=== PATIENT | male | born 1940 | race Caucasian/White ===

== ENCOUNTER 2016-07-17 09:13 | Emergency (ER) | payer OTHER ==
--- NOTE | 2016-07-17 10:55 | ED NURSING NOTES ---
Clinical Report - Nurses [facility] [address] [place] [address] 07/17/2016 9:15 Patient: KURT MILES TRIAGE Triage time 09:21. Acuity: LEVEL 3. Chief Complaint: BACK PAIN. 09:22 07/17/16. 09:22 07/17/16. Alert. 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 Pt states he has back pain and does not know why. Possibly from roof work or something else. Denies trauma to back. Possibly from exposure to a chemical that he was using for roof work.). SEPSIS SCREEN: Sepsis Screen. Negative (no infection suspected/documented). ARLETTE COMA SCORE: Arlette Coma Scale: 15- eyes open spontaneously (4); best verbal response- oriented x 4 (5); best motor response- obeys commands (6). --09:32 Hugo Leal R.N. 09:21 07/17/16. BP: 158/68. HR: 99. RR: 20. O2 saturation: 100% on room air. Temp: 98.3 F (oral). Pain level now: 10/19. --09:32 Hugo Leal R.N. Weight: 77.5 kg stated. Height/Length: 65 inches Per Patient. BMI: 28.5. --09:22 Hugo Leal R.N. Medications Niacin ER Oral 1000mg, daily. --09:28 Hugo Leal R.N. Rosuvastatin Calcium Oral 10 mg, daily. --09:28 Hugo Leal R.N. Tricor Oral (Tablet 145 mg) 1 tablet, daily. --09:29 Hugo Leal R.N. Medication/allergy information source: the patient. --09:32 Hugo Leal R.N. Allergies Malt Vinegar. --09:29 Hugo Leal R.N. History Arrived by private vehicle. Historian: patient. Unaccompanied. Primary physician (JERRY ALCAZAR). 09:07/17/16. Onset. (One week ago). No history of recent trauma. 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 PAST MEDICAL HX: Tetanus status: up-to-date. Immunizations: up-to-date. SOCIAL HX: Current every day light tobacco smoker (cigarette)- less than 1/2 a pack per day. History of occasional drug use: marijuana. (Marijuana cream for back). No alcohol use. No infectious disease exposure. ABUSE ASSESSMENT: No report of abuse. FALL RISK ASSESSMENT: Fall risk assessment completed. No fall risk identified. NUTRITIONAL RISK ASSESSMENT: The nutritional risk assessment revealed no deficiencies. FUNCTIONAL ASSESSMENT: Functional assessment: no impairments noted. LEARNING NEEDS ASSESSMENT: The learning needs assessment revealed no barriers. SKIN INTEGRITY ASSESSMENT: Skin integrity risk assessment completed. No skin integrity risk identified. --09:32 Hugo Leal R.N. PROBLEMS: Elevated Cholesterol. --09:30 Hugo Leal R.N. Tendonitis. --09:30 Hugo Leal R.N. Acute renal failure syndrome. Kidney Bruise. --09:32 Hugo Leal R.N. ADDITIONAL SURGERIES: Cervical laminectomy. Hemorrhoidectomy. --09:30 Hugo Leal R.N. Assessment 09:07/17/16. --09:32 Hugo Leal R.N. Interventions 09:07/17/16. 09:07/17/16. ID and allergy band on patient. To treatment room. --09:32 Hugo Leal R.N. PHYSICAL ASSESSMENT 09:07/17/16. Ambulatory to room. GENERAL / NEURO / PSYCH: Appears in pain. RESPIRATORY: Respirations not labored. CVS: Capillary refill less than 2 seconds. --09:32 Hugo Leal R.N. NURSING PROGRESS NOTES 09:07/17/16. The plan of care for this patient has been created. Head of bed elevated. Reassurance given. Two patient identifiers checked. Call light placed in reach. Side rails up x 2. Bed placed in lowest position. Brakes of bed on. --:25 Hugo Leal R.N. 09:07/17/16. Patient ready for evaluation- chart flagged and notification provided. --09:25 Hugo Leal R.N. 10:00 07/17/16. ( Urine sent to lab). --10:00 Hugo Leal R.N. DISPOSITION / DISCHARGE Departure time: 11:Jul 17 2016. Condition at departure: improved and stable. No learning barriers present. Discharge instructions provided and reviewed with the patient. Reviewed medication(s) side effects, precautions, dosing and course information. Prescription(s) given to the patient. Patient verbalized understanding. Written instructions provided in Swedish. The patient was discharged by the physician. He was discharged home. He left the Emergency Department ambulatory and via private vehicle. Patient driving. --11:14 Jadyn Nicolas R.N. 11:13 07/17/16. BP: 155/83. HR: 93. RR: 18. O2 saturation: 98% on room air. Pain level now: 10. --11:14 Jadyn Nicolas R.N. Locked/Released at 07/17/2016 11:15 by Jadyn Nicolas R.N.
--- NOTE | 2016-07-17 10:55 | ED ORDER SUMMARY ---
..... Patient: KURT MILES OrderSheet [facility] VisitID: [id number] [address] [place] [address] 76y, M Registration Date/Time: 07/17/2016 ORDER SHEET Weight: 77.5 kg (stated) Allergies: Malt Vinegar GENERAL ORDERS: UA-Culture if indicated Urgent (09:34 07/17/2016 Josefa R.N. per protocol) (Ack 9:41 Kameron) (9:59 JBpanchoy R.N.) Lumbar Spine 2 or 3V Urgent (10:07 07/17/2016 Maria G MEDEL) (Ack 10:09 Kameron) (10:26 JBoardley R.N.) MEDICATION ORDERS: IV FLUIDS: ORDER SHEET NOTES: [Electronically signed by Jadyn Nicolas R.N. (11:15 07/17/2016)] [Electronically signed by Len Duron MD (03:40 07/19/2016)] [Electronically locked/signed by Jadyn Nicolas R.N. (11:15 07/17/2016)]
--- NOTE | 2016-07-17 10:55 | ED NURSING NOTES ---
Clinical Report - Nurses [facility] [address] [place] [address] 07/17/2016 9:15 Patient: KURT MILES TRIAGE Triage time 09:21. Acuity: LEVEL 3. Chief Complaint: BACK PAIN. 09:22 07/17/16. 09:22 07/17/16. Alert. 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 Pt states he has back pain and does not know why. Possibly from roof work or something else. Denies trauma to back. Possibly from exposure to a chemical that he was using for roof work.). SEPSIS SCREEN: Sepsis Screen. Negative (no infection suspected/documented). ARLETTE COMA SCORE: Arlette Coma Scale: 15- eyes open spontaneously (4); best verbal response- oriented x 4 (5); best motor response- obeys commands (6). --09:32 Hugo Leal R.N. 09:21 07/17/16. BP: 158/68. HR: 99. RR: 20. O2 saturation: 100% on room air. Temp: 98.3 F (oral). Pain level now: 10/19. --09:32 Hugo Leal R.N. Weight: 77.5 kg stated. Height/Length: 65 inches Per Patient. BMI: 28.5. --09:22 Hugo Leal R.N. Medications Niacin ER Oral 1000mg, daily. --09:28 Hugo Leal R.N. Rosuvastatin Calcium Oral 10 mg, daily. --09:28 Hugo Leal R.N. Tricor Oral (Tablet 145 mg) 1 tablet, daily. --09:29 Hugo Leal R.N. Medication/allergy information source: the patient. --09:32 Hugo Leal R.N. Allergies Malt Vinegar. --09:29 Hugo Leal R.N. History Arrived by private vehicle. Historian: patient. Unaccompanied. Primary physician (JERRY ALCAZAR). 09:07/17/16. Onset. (One week ago). No history of recent trauma. 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 PAST MEDICAL HX: Tetanus status: up-to-date. Immunizations: up-to-date. SOCIAL HX: Current every day light tobacco smoker (cigarette)- less than 1/2 a pack per day. History of occasional drug use: marijuana. (Marijuana cream for back). No alcohol use. No infectious disease exposure. ABUSE ASSESSMENT: No report of abuse. FALL RISK ASSESSMENT: Fall risk assessment completed. No fall risk identified. NUTRITIONAL RISK ASSESSMENT: The nutritional risk assessment revealed no deficiencies. FUNCTIONAL ASSESSMENT: Functional assessment: no impairments noted. LEARNING NEEDS ASSESSMENT: The learning needs assessment revealed no barriers. SKIN INTEGRITY ASSESSMENT: Skin integrity risk assessment completed. No skin integrity risk identified. --09:32 Hugo Leal R.N. PROBLEMS: Elevated Cholesterol. --09:30 Hugo Leal R.N. Tendonitis. --09:30 Hugo Leal R.N. Acute renal failure syndrome. Kidney Bruise. --09:32 Hugo Leal R.N. ADDITIONAL SURGERIES: Cervical laminectomy. Hemorrhoidectomy. --09:30 Hugo Leal R.N. Assessment 09:07/17/16. --09:32 Hugo Leal R.N. Interventions 09:07/17/16. 09:07/17/16. ID and allergy band on patient. To treatment room. --09:32 Hugo Leal R.N. PHYSICAL ASSESSMENT 09:07/17/16. Ambulatory to room. GENERAL / NEURO / PSYCH: Appears in pain. RESPIRATORY: Respirations not labored. CVS: Capillary refill less than 2 seconds. --09:32 Hugo Leal R.N. NURSING PROGRESS NOTES 09:07/17/16. The plan of care for this patient has been created. Head of bed elevated. Reassurance given. Two patient identifiers checked. Call light placed in reach. Side rails up x 2. Bed placed in lowest position. Brakes of bed on. --:25 Hugo Leal R.N. 09:07/17/16. Patient ready for evaluation- chart flagged and notification provided. --09:25 Hugo Leal R.N. 10:00 07/17/16. ( Urine sent to lab). --10:00 Hugo Leal R.N. DISPOSITION / DISCHARGE Departure time: 11:Jul 17 2016. Condition at departure: improved and stable. No learning barriers present. Discharge instructions provided and reviewed with the patient. Reviewed medication(s) side effects, precautions, dosing and course information. Prescription(s) given to the patient. Patient verbalized understanding. Written instructions provided in Italian. The patient was discharged by the physician. He was discharged home. He left the Emergency Department ambulatory and via private vehicle. Patient driving. --11:14 Jadyn Nicolas R.N. 11:13 07/17/16. BP: 155/83. HR: 93. RR: 18. O2 saturation: 98% on room air. Pain level now: 10. --11:14 Jadyn Nicolas R.N. Locked/Released at 07/17/2016 11:15 by Jadyn Nicolas R.N.
--- NOTE | 2016-07-17 10:55 | ED ORDER SUMMARY ---
..... Patient: KURT MILES OrderSheet [facility] VisitID: [id number] [address] [place] [address] 76y, M Registration Date/Time: 07/17/2016 ORDER SHEET Weight: 77.5 kg (stated) Allergies: Malt Vinegar GENERAL ORDERS: UA-Culture if indicated Urgent (09:34 07/17/2016 Josefa R.N. per protocol) (Ack 9:41 Kameron) (9:59 JBpanchoy R.N.) Lumbar Spine 2 or 3V Urgent (10:07 07/17/2016 Maria G MEDEL) (Ack 10:09 Kameron) (10:26 JBoardley R.N.) MEDICATION ORDERS: IV FLUIDS: ORDER SHEET NOTES: [Electronically signed by Jadyn Nicolas R.N. (11:15 07/17/2016)] [Electronically signed by Len Duron MD (03:40 07/19/2016)] [Electronically locked/signed by Jadyn Nicolas R.N. (11:15 07/17/2016)]
--- NOTE | 2016-07-17 10:55 | ED CLINICAL REPORT ---
Clinical Report - Physicians/Mid Levels [facility] [address] [place] [place] [address] 07/17/2016 9:15 Patient: KURT MILES Time Seen: 09:35. Arrived- By private vehicle. Historian- patient. HISTORY OF PRESENT ILLNESS Chief Complaint: BACK PAIN. It is described as being severe and in the area of the lower lumbar spine and right lower lumbar spine and radiating to the right hip and thigh. The quality is noted to be aching and "pain". Onset- about 1 week ago and it is still present. It was abrupt in onset and has been constant and waxing/waning. No bladder dysfunction, bowel dysfunction, sensory loss or motor loss. Patient notes the possibility of an injury. 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 REVIEW OF SYSTEMS No chills, fever, sweats, calf pain or chest pain. No cough, difficulty breathing, pedal edema, palpitations or abdominal pain. No constipation, diarrhea, nausea, vomiting or urinary problems. All systems otherwise negative, except as recorded above. PAST HISTORY Primary physician (JERRY ALCAZAR). SOCIAL HISTORY Current every day light tobacco smoker (cigarette)- less than 1/2 a pack per day. History of drug use: marijuana. No alcohol use. FAMILY HISTORY No significant family medical history. ADDITIONAL NOTES The nursing notes have been reviewed. PHYSICAL EXAM Vital Signs: 07/17/2016 09:21 BP: 158/68. HR: 99. RR: 20. O2 saturation: 100%. Temp: 98.3 F. Pain level now: 8/10. Have been reviewed. Appearance: Alert. Eyes: Pupils equal, round and reactive to light. ENT: Pharynx normal. Neck: Normal inspection. Neck nontender. CVS: Heart sounds normal. Pulses normal. Respiratory: No respiratory distress. Breath sounds normal. Abdomen: No visible injury. Soft and nontender. Bowel sounds normal. No organomegaly. No mass. Back: Muscle spasm of the back. Severely limited ROM in the back- in the lumbar spine: decreased flexion, extension, right lateral bending, left lateral bending and rotation to the right and left. No vertebral point tenderness. Skin: Skin warm and dry. Normal skin color. Normal skin turgor. Extremities: Extremities exhibit normal ROM. No calf tenderness. Neuro: No motor deficit. No sensory deficit. LABS, X-RAYS, AND EKG LS-Spine X-rays: (IMPRESSION: 1. Moderate degenerative changes. 2. Grade 1 L2-3 retrolisthesis.). The X-rays were interpreted by the radiologist and contemporaneously by me. PROGRESS AND PROCEDURES Patient/family counseled. Old medical records reviewed. Disposition: Discharged. Condition: stable. CLINICAL IMPRESSION Lumbar back pain. INSTRUCTIONS Apply ice for 20 minutes four times a day until better. Don't apply ice directly to skin and don't use while asleep. No driving or operating machinery while taking medication. No lifting greater than 5 lbs, no bending or stooping or no prolonged sitting. Warnings: GENERAL WARNINGS: Return or contact your physician immediately if your condition worsens or changes unexpectedly, if not improving as expected, or if other problems arise. Prescription Medications: Ibuprofen 600mg tablets: take 1 tablet orally every 8 hours as needed for pain. Dispense thirty (30). No refills. Ultram 50 mg: take 1-2 orally every 6 hours as needed for pain. Dispense fifteen (15). No refills. Substitution is permissible. Understanding of the discharge instructions verbalized by patient. Follow-up with: Jerry Alcazar MD, [facility], , [facility], [address] [address] Follow up. Call for the next available appointment. (Electronically signed by Len Duron MD 07/19/2016 3:40)
--- NOTE | 2016-07-17 10:55 | ED CLINICAL REPORT ---
Clinical Report - Physicians/Mid Levels [facility] [address] [place] [address] 07/17/2016 9:15 Patient: KURT MILES Time Seen: 09:35. Arrived- By private vehicle. Historian- patient. HISTORY OF PRESENT ILLNESS Chief Complaint: BACK PAIN. It is described as being severe and in the area of the lower lumbar spine and right lower lumbar spine and radiating to the right hip and thigh. The quality is noted to be aching and "pain". Onset- about 1 week ago and it is still present. It was abrupt in onset and has been constant and waxing/waning. No bladder dysfunction, bowel dysfunction, sensory loss or motor loss. Patient notes the possibility of an injury. 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 REVIEW OF SYSTEMS No chills, fever, sweats, calf pain or chest pain. No cough, difficulty breathing, pedal edema, palpitations or abdominal pain. No constipation, diarrhea, nausea, vomiting or urinary problems. All systems otherwise negative, except as recorded above. PAST HISTORY Primary physician (JERRY ALCAZAR). SOCIAL HISTORY Current every day light tobacco smoker (cigarette)- less than 1/2 a pack per day. History of drug use: marijuana. No alcohol use. FAMILY HISTORY No significant family medical history. ADDITIONAL NOTES The nursing notes have been reviewed. PHYSICAL EXAM Vital Signs: 07/17/2016 09:21 BP: 158/68. HR: 99. RR: 20. O2 saturation: 100%. Temp: 98.3 F. Pain level now: 8/10. Have been reviewed. Appearance: Alert. Eyes: Pupils equal, round and reactive to light. ENT: Pharynx normal. Neck: Normal inspection. Neck nontender. CVS: Heart sounds normal. Pulses normal. Respiratory: No respiratory distress. Breath sounds normal. Abdomen: No visible injury. Soft and nontender. Bowel sounds normal. No organomegaly. No mass. Back: Muscle spasm of the back. Severely limited ROM in the back- in the lumbar spine: decreased flexion, extension, right lateral bending, left lateral bending and rotation to the right and left. No vertebral point tenderness. Skin: Skin warm and dry. Normal skin color. Normal skin turgor. Extremities: Extremities exhibit normal ROM. No calf tenderness. Neuro: No motor deficit. No sensory deficit. LABS, X-RAYS, AND EKG LS-Spine X-rays: (IMPRESSION: 1. Moderate degenerative changes. 2. Grade 1 L2-3 retrolisthesis.). The X-rays were interpreted by the radiologist and contemporaneously by me. PROGRESS AND PROCEDURES Patient/family counseled. Old medical records reviewed. Disposition: Discharged. Condition: stable. CLINICAL IMPRESSION Lumbar back pain. INSTRUCTIONS Apply ice for 20 minutes four times a day until better. Don't apply ice directly to skin and don't use while asleep. No driving or operating machinery while taking medication. No lifting greater than 5 lbs, no bending or stooping or no prolonged sitting. Warnings: GENERAL WARNINGS: Return or contact your physician immediately if your condition worsens or changes unexpectedly, if not improving as expected, or if other problems arise. Prescription Medications: Ibuprofen 600mg tablets: take 1 tablet orally every 8 hours as needed for pain. Dispense thirty (30). No refills. Ultram 50 mg: take 1-2 orally every 6 hours as needed for pain. Dispense fifteen (15). No refills. Substitution is permissible. Understanding of the discharge instructions verbalized by patient. Follow-up with: Jerry Alcazar MD, [facility], , [facility], [address] [address] Follow up. Call for the next available appointment. (Electronically signed by Len Duron MD 07/19/2016 3:40)
--- NOTE | 2016-07-17 11:03 | DIAGNOSTIC IMAGING REPORT ---
PROCEDURE: XR LUMBAR SPINE 2 OR 3 VIEWS INDICATION: LOWER BACK PAIN TECHNIQUE: Three views. COMPARISON: None. FINDINGS: Grade 1 L2-3 retrolisthesis. No fracture. Moderate spur formation with mild L1-2 and L2-3 disc space narrowing. Straightening of the lumbar spine. Atherosclerosis of the abdominal aorta. IMPRESSION: 1. Moderate degenerative changes. 2. Grade 1 L2-3 retrolisthesis.
--- NOTE | 2016-07-19 03:40 | ED DISCHARGE INSTRUCTIONS ---
Patient: KURT MILES General Instructions [facility] VisitID: [id number] [address] [place] [address] 76y, M Registration Date/Time: 07/17/2016 Lumbar back pain. INSTRUCTIONS Apply ice for 20 minutes four times a day until better. Don't apply ice directly to skin and don't use while asleep. No driving or operating machinery while taking medication. No lifting greater than 5 lbs, no bending or stooping or no prolonged sitting. Warnings: GENERAL WARNINGS: Return or contact your physician immediately if your condition worsens or changes unexpectedly, if not improving as expected, or if other problems arise. Prescription Medications: Ibuprofen 600mg tablets: take 1 tablet orally every 8 hours as needed for pain. Dispense thirty (30). No refills. Ultram 50 mg: take 1-2 orally every 6 hours as needed for pain. Dispense fifteen (15). No refills. Substitution is permissible. Understanding of the discharge instructions verbalized by patient. Follow-up with: Óscar Holland MD, [facility], , [facility], [address] [address] Follow up. Call for the next available appointment. ADDITIONAL INFORMATION Sciatica Sciatica ("Lumbar Radiculopathy") causes a pain that spreads from the lower back down into the buttock, hip and leg. Sometimes leg pain can occur without any back pain. Sciatica is due to irritation or pressure on a spinal nerve as it comes out of the spinal canal. This is most often due to a bulge or rupture of a nearby spinal disk (the cartilage cushion between each spinal bone), which presses on a nearby nerve. Other causes include spinal stenosis (narrowing of the spinal canal) and spasm of the pyriform muscle (a muscle in the buttocks that the sciatic nerve passes through). Sciatica may begin after a sudden twisting/bending force (such as in a car accident), or sometimes after a simple awkward movement. In either case, muscle spasm is commonly present and contributes to the pain. The diagnosis of sciatica is made from the symptoms and physical exam. Unless you had a physical injury (such as a car accident or fall), X-rays are usually not ordered for the initial evaluation of sciatica because the nerves and disks cannot be seen on an x-ray. If signs of a compressed nerve are present (for example, loss of tendon reflex or strength in the leg), an MRI (magnetic resonance imaging) scan will need to be scheduled as an outpatient. Most sciatica (80-90%) gets better with medicine, exercise, physical therapy. If symptoms continue after at least three months of medical treatment, surgery may be considered. Home Care: You may need to stay in bed the first few days. But, as soon as possible, begin sitting or walking to avoid problems with prolonged bed rest. When in bed, try to find a position of comfort. A firm mattress is best. Try lying flat on your back with pillows under your knees. You can also try lying on your side with your knees bent up towards your chest and a pillow between your knees. Avoid prolonged sitting. This puts more stress on the lower back than standing or walking. Some persons find relief with heat (hot shower, hot bath or heating pad) and massage, while others prefer cold packs (crushed or cubed ice in a plastic bag, wrapped in a towel). Try both and use the method that feels best for 20 minutes several times a day. You may use acetaminophen (Tylenol) or ibuprofen (Motrin, Advil) to control pain, unless another pain medicine was prescribed. [ NOTE: If you have chronic liver or kidney disease or ever had a stomach ulcer or GI bleeding, talk with your doctor before using these medicines.] Be aware of safe lifting methods and do not lift anything over 15 pounds until all the pain is gone. Follow Up with your doctor or this facility if your symptoms do not start to improve after one week. Physical therapy or further testing may be needed. [NOTE: If X-rays were taken, they will be reviewed by a radiologist. You will be notified of any new findings that may affect your care.] Get Prompt Medical Attention if any of the following occur: Pain becomes worse, not controlled by the prescribed medicine Weakness or numbness in one or both legs Numbness in the groin, genital area Loss of bowel or bladder control Tramadol Hydrochloride Oral tablet What is this medicine? TRAMADOL (TRA ma dole) is a pain reliever. It is used to treat moderate to severe pain in adults. How should I use this medicine? Take this medicine by mouth with a full glass of water. Follow the directions on the prescription label. If the medicine upsets your stomach, take it with food or milk. Do not take more medicine than you are told to take. Talk to your bridge game director regarding the use of this medicine in children. Special care may be needed. What side effects may I notice from receiving this medicine? Side effects that you should report to your doctor or health careers counsellor as soon as possible: allergic reactions like skin rash, itching or hives, swelling of the face, lips, or tongue breathing difficulties, wheezing confusion itching light headedness or fainting spells redness, blistering, peeling or loosening of the skin, including inside the mouth seizures Side effects that usually do not require medical attention (report to your doctor or health careers counsellor if they continue or are bothersome): constipation dizziness drowsiness headache nausea, vomiting What may interact with this medicine? Do not take this medicine with any of the following medications: MAOIs like Carbex, Eldepryl, Marplan, Nardil, and Parnate This medicine may also interact with the following medications: alcohol or medicines that contain alcohol antihistamines benzodiazepines bupropion carbamazepine or oxcarbazepine clozapine cyclobenzaprine digoxin furazolidone linezolid medicines for depression, anxiety, or psychotic disturbances medicines for migraine headache like almotriptan, eletriptan, frovatriptan, naratriptan, rizatriptan, sumatriptan, zolmitriptan medicines for pain like pentazocine, buprenorphine, butorphanol, meperidine, nalbuphine, and propoxyphene medicines for sleep muscle relaxants naltrexone phenobarbital phenothiazines like perphenazine, thioridazine, chlorpromazine, mesoridazine, fluphenazine, prochlorperazine, promazine, and trifluoperazine procarbazine warfarin What if I miss a dose? If you miss a dose, take it as soon as you can. If it is almost time for your next dose, take only that dose. Do not take double or extra doses. Where should I keep my medicine? Keep out of the reach of children. Store at room temperature between 15 and 30 degrees C (59 and 86 degrees F). Keep container tightly closed. Throw away any unused medicine after the expiration date. What should I tell my health care provider before I take this medicine? They need to know if you have any of these conditions: brain tumor depression drug abuse or addiction head injury if you frequently drink alcohol containing drinks kidney disease or trouble passing urine liver disease lung disease, asthma, or breathing problems seizures or epilepsy suicidal thoughts, plans, or attempt; a previous suicide attempt by you or a family member an unusual or allergic reaction to tramadol, codeine, other medicines, foods, dyes, or preservatives or trying to get breast-feeding What should I watch for while using this medicine? Tell your doctor or health careers counsellor if your pain does not go away, if it gets worse, or if you have new or a different type of pain. You may develop tolerance to the medicine. Tolerance means that you will need a higher dose of the medicine for pain relief. Tolerance is normal and is expected if you take this medicine for a long time. Do not suddenly stop taking your medicine because you may develop a severe reaction. Your body becomes used to the medicine. This does NOT mean you are addicted. Addiction is a behavior related to getting and using a drug for a non-medical reason. If you have pain, you have a medical reason to take pain medicine. Your doctor will tell you how much medicine to take. If your doctor wants you to stop the medicine, the dose will be slowly lowered over time to avoid any side effects. You may get drowsy or dizzy. Do not drive, use machinery, or do anything that needs mental alertness until you know how this medicine affects you. Do not stand or sit up quickly, especially if you are an older patient. This reduces the risk of dizzy or fainting spells. Alcohol can increase or decrease the effects of this medicine. Avoid alcoholic drinks. You may have constipation. Try to have a bowel movement at least every 2 to 3 days. If you do not have a bowel movement for 3 days, call your doctor or health careers counsellor. Your mouth may get dry. Chewing sugarless gum or sucking hard candy, and drinking plenty of water may help. Contact your doctor if the problem does not go away or is severe. You have been given the following additional information: Back Pain W/ Sciatica Tramadol Hydrochloride Oral tablet No driving or operating machinery while taking medication. No lifting greater than 5 lbs, no bending or stooping or no prolonged sitting. (Electronically signed by Len Duron MD 07/19/2016 3:40)
--- NOTE | 2016-07-19 03:40 | ED MAR SUMMARY ---
..... Medication Administration Record [facility] [address] [place], [place] [id number] Patient: KURT MILES Visit ID: [id number] 76y, M Weight: 77.5 kg Height/Length: 65 in BMI: 28.5 ALLERGIES: Malt Vinegar
--- NOTE | 2016-07-19 03:40 | ED MAR SUMMARY ---
..... Medication Administration Record [facility] [address] [place], [place] [id number] Patient: KURT MILES Visit ID: [id number] 76y, M Weight: 77.5 kg Height/Length: 65 in BMI: 28.5 ALLERGIES: Malt Vinegar
--- NOTE | 2016-07-19 03:40 | ED MED RECONCILIATION SUMMARY ---
Patient: KURT MILES Medication Reconciliation Report [facility] VisitID: [id number] [address] [place] [address] 76y, M Registration Date/Time: 07/17/2016 Weight: 77.5 kg Height/Length: 65 in. BMI: 28.5 ALLERGIES: Malt Vinegar The patient's Home Medications are listed below: THE FOLLOWING MEDICATIONS NEED TO BE RECONCILED: Niacin ER Oral 1000mg, daily Rosuvastatin Calcium Oral 10 mg, daily Tricor Oral (145 mg) 1 tablet, daily The source(s) of the original Home Medication information: patient The following Medications were given to the patient in the Emergency Department: None. The following Medications were prescribed to the patient: Ibuprofen 600mg tablets: take 1 tablet orally every 8 hours as needed for pain. Dispense thirty (30). No refills. -- Len Durno MD Ultram 50 mg: take 1-2 orally every 6 hours as needed for pain. Dispense fifteen (15). No refills. Substitution is permissible. -- Len Duron MD
--- NOTE | 2016-07-19 03:40 | ED MED RECONCILIATION SUMMARY ---
Patient: KURT MILES Medication Reconciliation Report [facility] VisitID: [id number] [address] [place] [address] 76y, M Registration Date/Time: 07/17/2016 Weight: 77.5 kg Height/Length: 65 in. BMI: 28.5 ALLERGIES: Malt Vinegar The patient's Home Medications are listed below: THE FOLLOWING MEDICATIONS NEED TO BE RECONCILED: Niacin ER Oral 1000mg, daily Rosuvastatin Calcium Oral 10 mg, daily Tricor Oral (145 mg) 1 tablet, daily The source(s) of the original Home Medication information: patient The following Medications were given to the patient in the Emergency Department: None. The following Medications were prescribed to the patient: Ibuprofen 600mg tablets: take 1 tablet orally every 8 hours as needed for pain. Dispense thirty (30). No refills. -- Len Duron MD Ultram 50 mg: take 1-2 orally every 6 hours as needed for pain. Dispense fifteen (15). No refills. Substitution is permissible. -- Len Duron MD
--- NOTE | 2016-07-19 03:40 | ED DISCHARGE INSTRUCTIONS ---
Patient: KURT MILES General Instructions [facility] VisitID: [id number] [address] [place] [address] 76y, M Registration Date/Time: 07/17/2016 Lumbar back pain. INSTRUCTIONS Apply ice for 20 minutes four times a day until better. Don't apply ice directly to skin and don't use while asleep. No driving or operating machinery while taking medication. No lifting greater than 5 lbs, no bending or stooping or no prolonged sitting. Warnings: GENERAL WARNINGS: Return or contact your physician immediately if your condition worsens or changes unexpectedly, if not improving as expected, or if other problems arise. Prescription Medications: Ibuprofen 600mg tablets: take 1 tablet orally every 8 hours as needed for pain. Dispense thirty (30). No refills. Ultram 50 mg: take 1-2 orally every 6 hours as needed for pain. Dispense fifteen (15). No refills. Substitution is permissible. Understanding of the discharge instructions verbalized by patient. Follow-up with: Óscar Holland MD, [facility], , [facility], [address] [address] Follow up. Call for the next available appointment. ADDITIONAL INFORMATION Sciatica Sciatica ("Lumbar Radiculopathy") causes a pain that spreads from the lower back down into the buttock, hip and leg. Sometimes leg pain can occur without any back pain. Sciatica is due to irritation or pressure on a spinal nerve as it comes out of the spinal canal. This is most often due to a bulge or rupture of a nearby spinal disk (the cartilage cushion between each spinal bone), which presses on a nearby nerve. Other causes include spinal stenosis (narrowing of the spinal canal) and spasm of the pyriform muscle (a muscle in the buttocks that the sciatic nerve passes through). Sciatica may begin after a sudden twisting/bending force (such as in a car accident), or sometimes after a simple awkward movement. In either case, muscle spasm is commonly present and contributes to the pain. The diagnosis of sciatica is made from the symptoms and physical exam. Unless you had a physical injury (such as a car accident or fall), X-rays are usually not ordered for the initial evaluation of sciatica because the nerves and disks cannot be seen on an x-ray. If signs of a compressed nerve are present (for example, loss of tendon reflex or strength in the leg), an MRI (magnetic resonance imaging) scan will need to be scheduled as an outpatient. Most sciatica (80-90%) gets better with medicine, exercise, physical therapy. If symptoms continue after at least three months of medical treatment, surgery may be considered. Home Care: You may need to stay in bed the first few days. But, as soon as possible, begin sitting or walking to avoid problems with prolonged bed rest. When in bed, try to find a position of comfort. A firm mattress is best. Try lying flat on your back with pillows under your knees. You can also try lying on your side with your knees bent up towards your chest and a pillow between your knees. Avoid prolonged sitting. This puts more stress on the lower back than standing or walking. Some persons find relief with heat (hot shower, hot bath or heating pad) and massage, while others prefer cold packs (crushed or cubed ice in a plastic bag, wrapped in a towel). Try both and use the method that feels best for 20 minutes several times a day. You may use acetaminophen (Tylenol) or ibuprofen (Motrin, Advil) to control pain, unless another pain medicine was prescribed. [ NOTE: If you have chronic liver or kidney disease or ever had a stomach ulcer or GI bleeding, talk with your doctor before using these medicines.] Be aware of safe lifting methods and do not lift anything over 15 pounds until all the pain is gone. Follow Up with your doctor or this facility if your symptoms do not start to improve after one week. Physical therapy or further testing may be needed. [NOTE: If X-rays were taken, they will be reviewed by a radiologist. You will be notified of any new findings that may affect your care.] Get Prompt Medical Attention if any of the following occur: Pain becomes worse, not controlled by the prescribed medicine Weakness or numbness in one or both legs Numbness in the groin, genital area Loss of bowel or bladder control Tramadol Hydrochloride Oral tablet What is this medicine? TRAMADOL (TRA ma dole) is a pain reliever. It is used to treat moderate to severe pain in adults. How should I use this medicine? Take this medicine by mouth with a full glass of water. Follow the directions on the prescription label. If the medicine upsets your stomach, take it with food or milk. Do not take more medicine than you are told to take. Talk to your forensic pathologist regarding the use of this medicine in children. Special care may be needed. What side effects may I notice from receiving this medicine? Side effects that you should report to your doctor or health child care attendant school as soon as possible: allergic reactions like skin rash, itching or hives, swelling of the face, lips, or tongue breathing difficulties, wheezing confusion itching light headedness or fainting spells redness, blistering, peeling or loosening of the skin, including inside the mouth seizures Side effects that usually do not require medical attention (report to your doctor or health child care attendant school if they continue or are bothersome): constipation dizziness drowsiness headache nausea, vomiting What may interact with this medicine? Do not take this medicine with any of the following medications: MAOIs like Carbex, Eldepryl, Marplan, Nardil, and Parnate This medicine may also interact with the following medications: alcohol or medicines that contain alcohol antihistamines benzodiazepines bupropion carbamazepine or oxcarbazepine clozapine cyclobenzaprine digoxin furazolidone linezolid medicines for depression, anxiety, or psychotic disturbances medicines for migraine headache like almotriptan, eletriptan, frovatriptan, naratriptan, rizatriptan, sumatriptan, zolmitriptan medicines for pain like pentazocine, buprenorphine, butorphanol, meperidine, nalbuphine, and propoxyphene medicines for sleep muscle relaxants naltrexone phenobarbital phenothiazines like perphenazine, thioridazine, chlorpromazine, mesoridazine, fluphenazine, prochlorperazine, promazine, and trifluoperazine procarbazine warfarin What if I miss a dose? If you miss a dose, take it as soon as you can. If it is almost time for your next dose, take only that dose. Do not take double or extra doses. Where should I keep my medicine? Keep out of the reach of children. Store at room temperature between 15 and 30 degrees C (59 and 86 degrees F). Keep container tightly closed. Throw away any unused medicine after the expiration date. What should I tell my health care provider before I take this medicine? They need to know if you have any of these conditions: brain tumor depression drug abuse or addiction head injury if you frequently drink alcohol containing drinks kidney disease or trouble passing urine liver disease lung disease, asthma, or breathing problems seizures or epilepsy suicidal thoughts, plans, or attempt; a previous suicide attempt by you or a family member an unusual or allergic reaction to tramadol, codeine, other medicines, foods, dyes, or preservatives or trying to get breast-feeding What should I watch for while using this medicine? Tell your doctor or health child care attendant school if your pain does not go away, if it gets worse, or if you have new or a different type of pain. You may develop tolerance to the medicine. Tolerance means that you will need a higher dose of the medicine for pain relief. Tolerance is normal and is expected if you take this medicine for a long time. Do not suddenly stop taking your medicine because you may develop a severe reaction. Your body becomes used to the medicine. This does NOT mean you are addicted. Addiction is a behavior related to getting and using a drug for a non-medical reason. If you have pain, you have a medical reason to take pain medicine. Your doctor will tell you how much medicine to take. If your doctor wants you to stop the medicine, the dose will be slowly lowered over time to avoid any side effects. You may get drowsy or dizzy. Do not drive, use machinery, or do anything that needs mental alertness until you know how this medicine affects you. Do not stand or sit up quickly, especially if you are an older patient. This reduces the risk of dizzy or fainting spells. Alcohol can increase or decrease the effects of this medicine. Avoid alcoholic drinks. You may have constipation. Try to have a bowel movement at least every 2 to 3 days. If you do not have a bowel movement for 3 days, call your doctor or health child care attendant school. Your mouth may get dry. Chewing sugarless gum or sucking hard candy, and drinking plenty of water may help. Contact your doctor if the problem does not go away or is severe. You have been given the following additional information: Back Pain W/ Sciatica Tramadol Hydrochloride Oral tablet No driving or operating machinery while taking medication. No lifting greater than 5 lbs, no bending or stooping or no prolonged sitting. (Electronically signed by Len Duron MD 07/19/2016 3:40)
== END 2016-07-17 11:05 | disposition home or self-care (01) ==
LOC: ED SRH 09:13
DX: M54.5 Low back pain (principal)
CPT/HCPCS: 90004

== ENCOUNTER 2016-07-24 16:49 | Inpatient (IN) | payer OTHER ==
[~2016-07-24] VITALS: Ht 165.1 cm; Wt 78.9 kg
--- NOTE | 2016-07-24 18:15 | DIAGNOSTIC IMAGING REPORT ---
PROCEDURE: XR CHEST 1 VIEW INDICATION: SHORTNESS OF BREATH TECHNIQUE: Portable AP view 06:04 p.m. COMPARISON: None available FINDINGS: Right lower lobe infiltrate with a right pleural effusion. There is also some atelectasis in the left base. Heart size and pulmonary vasculature are normal. IMPRESSION: 1. Right lower lobe infiltrate and right pleural effusion. 2. Results were called to the emergency department at 06:15pm
--- NOTE | 2016-07-24 19:05 | DIAGNOSTIC IMAGING REPORT ---
PROCEDURE: CT ABDOMEN/PELVIS W/O CONTRAST INDICATION: ABDOMINAL PAIN TECHNIQUE: Axial CT images were obtained through the abdomen and pelvis without IV contrast. Coronal and sagittal reformations were created. COMPARISON: Chest x-ray Performed the same day FINDINGS: Heterogeneous tissue in the anterior mediastinal space on the initial axial image, incompletely evaluated. Small to moderate posteriorly layering right pleural effusion. Small right lower lobe consolidation at the lung base and moderate right hilar adenopathy. Minor left lung base scarring. Coarse mitral annular calcification. Small pericardial effusion. Normal size heart. Small hiatal hernia. Thickened, nodular, hypodense adrenal glands, stable. Mild bilateral perinephric stranding. No hydronephrosis or renal calcification. Normal caliber abdominal aorta with moderate calcific atherosclerosis. The unenhanced appearance of the liver, gallbladder, adrenal glands, kidneys, pancreas and spleen is normal. There are no suspicious calcifications, retroperitoneal adenopathy or masses. The stomach, upper bowel loops, and mesentery appears normal. Intact anterior abdominal wall. No free fluid, or inflammation. Moderate sigmoid diverticulosis. A few small bladder diverticula of the left posterolateral aspect are present, chronic. The unenhanced appearance of the prostate gland, seminal vesicles, pelvic vessels, and pelvic bowel loops is normal. Normal appendix. No suspicious calcifications, free fluid, or mass. Asymmetric enlargement and slight loss of muscular striations involving the right paraspinal musculature throughout the length of the of the lumbar spine to the level of the iliac crests. No suspicious osseous lesions or cortical erosions visible. Degenerative disc height loss in the lower thoracic spine. Degenerative endplate changes in the lumbar spine. IMPRESSION: 1. Right lower lobe parenchymal consolidation and small to moderate right effusion with reactive adenopathy suggestive of pneumonia. 2. Small pericardial effusion, new. 3. Partially imaged abnormal anterior mediastinal soft tissue. Chest CT is recommended. 4. Asymmetric enlargement and abnormal loss of architecture involving the right paraspinal musculature. Without the aid of contrast, an intramuscular abscess cannot be entirely excluded. MRI could be considered, although gadolinium cannot be administered. 5. Sigmoid diverticulosis without acute diverticulitis. 6. Findings discussed with Dr. Merrill in the emergency room. All CT scans at this facility use dose modulation, iterative reconstruction, and/or weight-based dosing when appropriate to reduce radiation dose to as low as reasonably achievable.
--- NOTE | 2016-07-24 19:08 | ED ORDER SUMMARY ---
..... Patient: KURT MILES OrderSheet [facility] VisitID: [id number] [address] [place] [address] 76y, M Registration Date/Time: 07/24/2016 ORDER SHEET Weight: 77.5 kg (stated) Allergies: Malt Vinegar, Betadine GENERAL ORDERS: Cardiac Panel Stat (17:07/24/2016 Jalen MEDEL) (17:29 MCook R.N.) BNP Urgent (17:07/24/2016 Jalen MEDEL) (17:29 MCook R.N.) CRP Urgent (17:07/24/2016 Jalen MEDEL) (17:29 MCook R.N.) Lactate, Serum Urgent (17:07/24/2016 Jalen MEDEL) (17:29 MCook R.N.) PCT (Procalcitonin) Urgent (17:07/24/2016 Jalen MEDEL) (17:29 MCook R.N.) Chest 1V Urgent (17:07/24/2016 Jalen MEDEL) (Ack 17:34 Kameron) (19:02 MCook R.N.) Haulpak Driver (Continuous) (17:07/24/2016 Jalen MEDEL) (17:32 MCook R.N.) Blood Culture (No) (N/A) Urgent (17:07/24/2016 Jalen MEDEL) (17:32 BENJAMINook R.N.) UA-Culture if indicated Urgent (17:07/24/2016 Jalen MEDEL) (Ack 17:34 Kameron) (20:55 MCook R.N.) Oxygen (2 L/min) (NC) (17:07/24/2016 Jalen MEDEL) (17:32 Carmelinak R.N.) Pulse oximeter (17:07/24/2016 Jalen MEDEL) (17:32 MCook R.N.) EKG - ER Stat (17:07/24/2016 Jalen MEDEL) (17:40 MCook R.N.) CT Abd/Pel w Cont (No) (pending) Urgent (17:31 07/24/2016 Jalen MEDEL) (Ack 17:34 TYRELoesunny) (Cancelled: Other18:11 Jalen MEDEL) Lipase Urgent (17:32 07/24/2016 Jalen MEDEL) (17:32 MCook R.N.) Amylase Urgent (17:32 07/24/2016 Jalen MEDEL) (17:32 MCook R.N.) Type & Cross (Anemia) (transfusion) Urgent (17:56 07/24/2016 Jalen MEDEL) (Ack 17:58 KHoerner) (17:58 KHoerner) Transfuse PRBCs (4 units PRBC'c now) (17:59 07/24/2016 Jalen MEDEL) (Ack 19:27 JQuivey R.N.) (20:11 MCook R.N.) CT Abd/Pel wo Cont Urgent (18:11 07/24/2016 Jalen MEDEL) (Ack 18:13 TYRELoesunny) (18:32 MCook R.N.) - (transfuse 2 units of O negative blood STAT.) (18:35 07/24/2016 Jalen MEDEL) (19:02 MCook R.N.) Old Records (any old labs in [facility]?) (19:02 07/24/2016 Jalen MEDEL) (Ack 19:21 JBoardley R.N.) (20:55 MCook R.N.) CT Thorax wo Cont Urgent (19:08 07/24/2016 Jalen MEDEL) (Ack 19:09 TYRELoesunny) (19:40 MCook R.N.) Noble Catheter (19:57 07/24/2016 Jalen MEDEL) (20:45 MCook R.N.) MEDICATION ORDERS: IV FLUIDS: IV NS : initial bolus none -, then 150 mL/hr for 4h (NOW); Routine (17:28 07/24/2016 Jalen MEDEL) (17:38 MCook R.N.) Zofran IV 4 mg (NOW) (17:30 07/24/2016 Jalen MEDEL) (17:38 MCook R.N.) Demerol IV 12.5 mg (NOW) (17:33 07/24/2016 Jalen MEDEL) (17:46 Jasen GregoryN.) Demerol IV 12.5 mg (NOW) (18:00 07/24/2016 Jalen MEDEL) (Cancelled: Other18:00 Jalen MEDEL) Dilaudid IV 0.5 mg (NOW) (18:01 07/24/2016 Jalen MEDEL) (19:04 Jasen R.N.) Levaquin IV 750 mg/150 mL (NOW) (18:01 07/24/2016 Jalen MEDEL) (19:10 Jasen R.N.) IV NS : initial bolus 500 mL (1000 mL/hr), then 250 mL/hr for 4h (NOW); Routine (18:43 07/24/2016 Jalen MEDEL) (18:55 Jasen R.N.) Vancomycin IV 25 mg/kg (NOW) (19:56 07/24/2016 Jalen MEDEL) (Ack 20:23 Kassidy R.N.) (20:36 Jasen R.N.) ORDER SHEET NOTES: [Electronically signed by Carmelo Merrill MD (22:38 07/24/2016)] [Electronically signed by Jake Dexter R.N. (00:36 07/25/2016)] [Electronically locked/signed by Jake Dexter R.N. (00:36 07/25/2016)]
--- NOTE | 2016-07-24 19:08 | ED CLINICAL REPORT ---
Clinical Report - Physicians/Mid Levels [facility] [address] [place] [address] 07/24/2016 16:50 Patient: KURT MILES Time Seen: 17:32 Jul 24 2016. Arrived- By ambulance. Historian- patient and EMS personnel. CPT: Critical care < 74 min plus (#[id number]) and 30-74 min plus (#[id number]). EKG interpretation (#[id number]). HISTORY OF PRESENT ILLNESS Chief Complaint: DYSPNEA. This started about 2 days [employer]; Back pain for a week that is acutely worse today. New onset abdominal pain , lower abdomen associated with vomiting for past 2 days. Feels he is short of breath due to pain. and is still present. The dyspnea is described as moderate and is worsened by exertion and is improved by rest. The patient has had a cough and dyspnea on exertion. No dizziness or palpitations. Similar symptoms previously: None. Recent medical care: The patient was seen recently at this facility in the emergency department (1 weeks ago). Seen for low back pain. Diagnosis: (DJD). REVIEW OF SYSTEMS The patient has had muscle aches, nausea, vomiting, abdominal pain and weakness. No eye irritation, sore throat or throat, nasal discharge or sinus drainage. No diarrhea, black stools or stools or bloody stools or stools. No headache, fainting episodes, difficulty with urination, excessive urination or skin rash. No enlarged lymph nodes, hematuria, diabetic symptoms or easy bruising. All systems otherwise negative, except as recorded above. PAST HISTORY Back Pain. Acute renal failure syndrome. Kidney Bruise. Tendonitis. Elevated Cholesterol. ADDITIONAL SURGERIES: Cervical laminectomy. Hemorrhoidectomy. Medications: Fish Oil + D3 Oral. Krill Oil [place]-3 Oral. Niacin ER Oral 1000mg, daily. Rosuvastatin Calcium Oral 10 mg, daily. Tricor Oral (Tablet 145 mg) 1 tablet, daily. Cyclobenzaprine HCl Oral. TraMADol HCl Oral. Ibuprofen Oral. Allergies: Betadine. Malt Vinegar. SOCIAL HISTORY Heavy tobacco smoker (cigarette)- 1 pack per day. History of drug use: marijuana. No alcohol use. ADDITIONAL NOTES The nursing notes have been reviewed. PHYSICAL EXAM Vital Signs: 07/24/2016 16:53 BP: 111/56. HR: 136. RR: 25. O2 saturation: 95%. Temp: 97.8 F. Pain level now: 8/10. Appearance: Alert. Appears to be in pain. Patient in moderate distress. Eyes: Pale conjunctivae. Eyes normal inspection. ENT: Nose normal. Dry mucous membranes present. Pharynx normal. Uvula midline. Neck: Normal inspection. No meningeal signs. CVS: Tachycardia. Heart sounds normal. Pulses normal. Respiratory: Moderate respiratory distress with tachypnea. Speaks short phrases. Moderate bilateral rhonchi present diffusely. Moderate rales present in the lower two-thirds of both lung allison. Abdomen: Soft. Moderate tenderness in the right lower quadrant, left lower quadrant and lower abdomen with guarding present. Abnormal bowel sounds: diminished. Obese. Back: (tender paralumbar soft tissue.). Rectal: Rectal exam normal and nontender. Stool heme negative. (POC test reference range: negative). Skin: Skin warm. No rash. Pale. Extremities: Extremities exhibit normal ROM. Neuro: Oriented X 3. No motor deficit. No sensory deficit. LABS, X-RAYS, AND EKG EKG: Normal sinus rhythm. Tachycardia. Normal P waves. Normal QRS complex. Normal axis. Normal ST and T waves. Prior EKG unavailable. The study has been interpreted contemporaneously. The study has been independently viewed by me. The EKG appears to be a good tracing. Chest X-ray: Infiltrate in the right lower lobe. Consistent with pneumonia. Views: AP (portable). Technique: good. The X-rays were independently viewed by me and interpreted by the radiologist. Abdominal CT: mild pancreatitis, swelling right psoas, DJD of the spine. Abdominal CT performed without contrast. The study was independently viewed by me, interpreted by the radiologist and discussed with the radiologist. Chest CT: Hilar adenopathy. 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 Mediastinal adenopathy. Moderate right effusion.). Chest CT performed without contrast. The study was independently viewed by me, interpreted by the radiologist and discussed with the radiologist. Laboratory Tests: CBC w Diff: (GURDEEP: 07/24/2016 17:05) ( MsgRcvd 07/24/2016 19:12) Final results Test Result Flag Units (Reference) WHITE BLOOD COUNT 25.5 *H K/uL (4.5-11.5) CRITICAL RESULTS CALLEDCalled to BRADLEY , 07/24/16 1804Were 2 patient identifiers used? YESWas the result read back? YES RED BLOOD COUNT 2.09 L M/uL (4.50-5.90) HEMOGLOBIN 6.4 *L gm/dL (13.5-17.5) CRITICAL RESULTS CALLEDCalled to BRADLEY , 07/24/16 1804Were 2 patient identifiers used? YESWas the result read back? YES HEMATOCRIT 18.9 *L % (41.0-53.0) CRITICAL RESULTS CALLEDCalled to BRADLEY , 07/24/16 1805Were 2 patient identifiers used? YESWas the result read back? YES MEAN CELL VOLUME 91 fL (80-100) MEAN CORPUSCULAR HGB 31 pg (26-34) MEAN CORPUSCULAR HGB CONC 34 g/dL (31-37) RED CELL DISTRIBUTION WIDTH 12.8 % (11.6-14.8) PLATELET COUNT 290 K/uL (150-400) POLY % 86 H % (50-75) BAND % 4 % (0-8) LYMPH 6 L % (25-40) MONO 3 % (3-14) EOSINOPHIL % 1 % (0-4) BASOPHIL % 0 % (0-2) METAMYELOCYTE % 0 % (0-1) MYELOCYTE 0 % (0-1) OTHER CELL TYPE 0 RBC MORPHOLOGY NORMOCHROMIC~~NORMOCYTIC BNP: (GURDEEP: 07/24/2016 17:05) ( [facility] 07/24/2016 18:19) Final results Test Result Flag Units (Reference) B-TYPE NATRIURETIC PEPTIDE 130 H pg/ml (5-100) [id number]: (GURDEEP: 07/24/2016 17:05) ( [facility] 07/24/2016 18:53) Final results Test Result Flag Units (Reference) PROCALCITONIN <0.5 ng/mL (0-0.5) PCT Concentration: Interpretation : Risk/option for action PCT <=0.5 ng/mL : Systemic : Low risk forinfection(sepsis): progression to severeis not likely. : systemic infection.Local bacterial : CAUTION-PCT levelsinfection is : below 0.5 ng/mL do notpossible. : exclude an infection,because localizedinfections (withoutsystemic signs) may beassociated with suchlow levels. If PCT ismeasured very earlyafter a bacterialchallenge (usually <6hours), these valuesmay still be low. Inthis case PCT shouldbe re-assessed 6-24hours later. PCT >0.5 and : Systemic infection: Moderate risk for<= 2 ng/mL : (sepsis) is : progression to severepossible, but : systemic infection.other conditions : The patient should beare known to : closely monitoredelevate PCT. : both clinically andby re-assessing PCTwithin 6-24 hours. PCT > 2 ng/mL : Systemic infection: High risk for(sepsis) is likely: progression to severeunless other : systemic infection.causes are known. : PCT >= 10 ng/mL : Important systemic: High likelihood ofinflammatory : severe sepsis orresponse, almost : septic shock.exclusively due to:severe bacterial :sepsis or septic :shock. : CHEM 13 PANEL: (GURDEEP: 07/24/2016 17:05) ( MsgRcvd 07/24/2016 18:17) Final results Test Result Flag Units (Reference) GLUCOSE 140 H mg/dL (70-110) BUN 115 *H mg/dL (7-18) CRITICAL RESULTS CALLEDCalled to REJI 07/24/16 1803Were 2 patient identifiers used? YESWas the result read back? YES CREATININE 5.9 H mg/dL (0.6-1.3) Estimated GFR 9.90 mL/min Estimated GFR- 12.00 mL/min Note: Persistent reduction over 3 months in eGFR<60 mL/min/1.73 m2 defines CKD. Patients with eGFR values>=60 mL/min/1.73 m2 may also have CKD if evidence ofpersistent proteinuria. Additional information may be foundat www.kidney.org. SODIUM 130 L mmol/L (136-145) POTASSIUM 5.6 H mmol/L (3.5-5.1) CHLORIDE 93 L mmol/L (98-107) CARBON DIOXIDE 16 L mmol/L (21-32) CALCIUM 9.8 mg/dL (8.5-10.1) TOTAL PROTEIN 6.9 g/dL (6.4-8.2) ALBUMIN 2.6 L g/dL (3.3-5.0) BILIRUBIN, TOTAL 0.8 mg/dL (0.0-1.0) ALKALINE PHOSPHATASE 55 U/L (46-116) AST (SGOT) 17 U/L (15-37) ALT (SGPT) 19 U/L (12-78) MAGNESIUM 2.1 mg/dL (1.8-2.4) LIPASE 1677 H U/L (73-393) AMYLASE 391 H U/L (25-115) CPK 110 U/L (24-260) TROPONIN I <0.05 ng/mL (0.00-1.5) TROPONIN REFERENCE RANGE:<0.1 NEGATIVE0.1-1.5 INDETERMINANT>1.5 POSITIVE C-REACTIVE PROTEIN 21.6 H mg/dL (0.0-0.9) Type & Cross: (GURDEEP: 07/24/2016 17:05) ( MsgRcvd 07/24/2016 19:54) IP Test Result Flag Units (Reference) PATIENT BLOOD TYPE O Positive Above is a corrected result. Previously reported on ( MsgRcvd 07/24/2016 19:18) as: PATIENT BLOOD TYPE O Positive ANTIBODY SCREEN NEGATIVE Above is a corrected result. Previously reported on ( MsgRcvd 07/24/2016:18) as: ANTIBODY SCREEN NEGATIVE LEUKOREDUCED PACKED CELLS [id number] OP PC ISSUED 07/24/161951 [id number] OP PC XM COMPATIBLE [id number] OP PC XM COMPATIBLE [id number] ON PC ISSUED 07/24/161839 . PROGRESS AND PROCEDURES Course of Care: IV NS BC times 2 Levaquin 750 mg IV Transfuse 2 units O negative blood. Pt crossed and typed for 4 units PRBC's. Pt with pancreatitis, pneumonia, lung mass, pulmonary effusion, severe back pain, severe anemia, tachycardia and renal insufficiency due to dehydration. Sepsis with elevated lactic acid. 21:37 07/24/16. Lab delayed running lactic acid for 4 hours. Sample is on the machine now. 21:30 07/24/16. BP: 153/75. HR: 104. RR: 20. O2 saturation: 100% on nasal cannula at 2 liters/minute. Temp: 97.8 F. Pain level now: 6/10. Critical care performed (120 minutes). Time is exclusive of separately billable procedures. Time includes: direct patient care, patient reassessment, coordination of patient care, interpretation of data (laboratory data, pulse oximetry and chest xrays), review of patient's medical records and documentation of patient care- see progress notes. Procedures included in critical care time: peripheral IV placement and phlebotomy- see progress notes. Procedures excluded from critical care time: electrocardiography. Discussed case with patient's primary care provider, Blaire). Reviewed test results. Agreed upon treatment plan and decision to admit. Health care provider will see patient in hospital. Patient/family counseled. Old medical records ordered. Disposition orders written. Disposition: Admitted to the Critical Care Unit. CLINICAL IMPRESSION Bacterial bronchopneumonia with hypoxemia. Vital signs recorded and reviewed; empiric antibiotics given in the ED. Right lung masswith effusion Renal insufficiency Severe dehydration Severe anemia in need of transfusion Acute pancreatitis Severe low back pain Sepsis. (Electronically signed by Carmelo Merrill MD 07/24/2016 22:38)
--- NOTE | 2016-07-24 19:08 | ED ORDER SUMMARY ---
..... Patient: KURT MILES OrderSheet [facility] VisitID: [id number] [address] [place] [address] 76y, M Registration Date/Time: 07/24/2016 ORDER SHEET Weight: 77.5 kg (stated) Allergies: Malt Vinegar, Betadine GENERAL ORDERS: Cardiac Panel Stat (17:07/24/2016 Jalen MEDEL) (17:29 MCook R.N.) BNP Urgent (17:07/24/2016 Jalen MEDEL) (17:29 MCook R.N.) CRP Urgent (17:07/24/2016 Jalen MEDEL) (17:29 MCook R.N.) Lactate, Serum Urgent (17:07/24/2016 Jalen MEDEL) (17:29 MCook R.N.) PCT (Procalcitonin) Urgent (17:07/24/2016 Jalen MEDEL) (17:29 MCook R.N.) Chest 1V Urgent (17:07/24/2016 Jalen MEDEL) (Ack 17:34 Kameron) (19:02 MCook R.N.) Finger Cobbler (Continuous) (17:07/24/2016 Jalen MEDEL) (17:32 MCook R.N.) Blood Culture (No) (N/A) Urgent (17:07/24/2016 Jalen MEDEL) (17:32 BENJAMINook R.N.) UA-Culture if indicated Urgent (17:07/24/2016 Jalen MEDEL) (Ack 17:34 Kameron) (20:55 MCook R.N.) Oxygen (2 L/min) (NC) (17:07/24/2016 Jalen MEDEL) (17:32 Carmelinak R.N.) Pulse oximeter (17:07/24/2016 Jalen MEDEL) (17:32 MCook R.N.) EKG - ER Stat (17:07/24/2016 Jalen MEDEL) (17:40 MCook R.N.) CT Abd/Pel w Cont (No) (pending) Urgent (17:31 07/24/2016 Jalen MEDEL) (Ack 17:34 TYRELoesunny) (Cancelled: Other18:11 Jalen MEDEL) Lipase Urgent (17:32 07/24/2016 Jalen MEDEL) (17:32 MCook R.N.) Amylase Urgent (17:32 07/24/2016 Jalen MEDEL) (17:32 MCook R.N.) Type & Cross (Anemia) (transfusion) Urgent (17:56 07/24/2016 Jalen MEDEL) (Ack 17:58 KHoerner) (17:58 KHoerner) Transfuse PRBCs (4 units PRBC'c now) (17:59 07/24/2016 Jalen MEDEL) (Ack 19:27 JQuivey R.N.) (20:11 MCook R.N.) CT Abd/Pel wo Cont Urgent (18:11 07/24/2016 Jalen MEDEL) (Ack 18:13 TYRELoesunny) (18:32 MCook R.N.) - (transfuse 2 units of O negative blood STAT.) (18:35 07/24/2016 Jalen MEDEL) (19:02 MCook R.N.) Old Records (any old labs in [facility]?) (19:02 07/24/2016 Jalen MEDEL) (Ack 19:21 JBoardley R.N.) (20:55 MCook R.N.) CT Thorax wo Cont Urgent (19:08 07/24/2016 Jalen MEDEL) (Ack 19:09 TYRELoesunny) (19:40 MCook R.N.) Noble Catheter (19:57 07/24/2016 Jalen MEDEL) (20:45 MCook R.N.) MEDICATION ORDERS: IV FLUIDS: IV NS : initial bolus none -, then 150 mL/hr for 4h (NOW); Routine (17:28 07/24/2016 Jalen MEDEL) (17:38 MCook R.N.) Zofran IV 4 mg (NOW) (17:30 07/24/2016 Jalen MEDEL) (17:38 MCook R.N.) Demerol IV 12.5 mg (NOW) (17:33 07/24/2016 Jalen MEDEL) (17:46 Jasen GregoryN.) Demerol IV 12.5 mg (NOW) (18:00 07/24/2016 Jalen MEDEL) (Cancelled: Other18:00 Jalen MEDEL) Dilaudid IV 0.5 mg (NOW) (18:01 07/24/2016 Jalen MEDEL) (19:04 Jasen R.N.) Levaquin IV 750 mg/150 mL (NOW) (18:01 07/24/2016 Jalen MEDEL) (19:10 Jasen R.N.) IV NS : initial bolus 500 mL (1000 mL/hr), then 250 mL/hr for 4h (NOW); Routine (18:43 07/24/2016 Jalen MEDEL) (18:55 Jasen R.N.) Vancomycin IV 25 mg/kg (NOW) (19:56 07/24/2016 Jalen MEDEL) (Ack 20:23 Kassidy R.N.) (20:36 Jasen R.N.) ORDER SHEET NOTES: [Electronically signed by Carmelo Merrill MD (22:38 07/24/2016)] [Electronically signed by Jake Dexter R.N. (00:36 07/25/2016)] [Electronically locked/signed by Jake Dexter R.N. (00:36 07/25/2016)]
--- NOTE | 2016-07-24 19:08 | ED NURSING NOTES ---
Clinical Report - Nurses [facility] [address] [place] [address] 07/24/2016 16:50 Patient: KURT MILES TRIAGE Triage time 16:53 Jul 24 2016. Acuity: LEVEL 3. Chief Complaint: SHORTNESS OF BREATH and DIFFICULTY BREATHING. --16:59 Jake Dexter R.N. 16:53 07/24/16. BP: 111/56. HR: 136. RR: 25. O2 saturation: 95% on nasal cannula at 2 liters/minute. Temp: 97.8 F. Pain level now: 10/19. --16:59 Jake Dexter R.N. Alert. No acute distress. --16:59 Jake Dexter R.N. Weight: 77.5 kg stated. Height/Length: 65 inches Per Patient. BMI: 28.5. --16:52 Jake Dexter R.N. Medications Ibuprofen Oral. --16:55 Jake Dexter R.N. TraMADol HCl Oral. --16:55 Jake Dexter R.N. Cyclobenzaprine HCl Oral. --16:55 Jake Dexter R.N. Niacin ER Oral 1000mg, daily. Rosuvastatin Calcium Oral 10 mg, daily. Tricor Oral (Tablet 145 mg) 1 tablet, daily. --17:14 Jake Dexter R.N. Fish Oil + D3 Oral. Krill Oil [place]-3 Oral. --17:14 Jake Dexter R.N. Allergies Malt Vinegar. --17:13 Jake Dexter R.N. Betadine. --20:59 Jake Dexter R.N. History Arrived by EMS. Historian: patient. The patient has had wheezing, chest pain (substernal) and lower back pain. No fever. Treatment SET UP INSPECTOR: Took ibuprofen. (Tramadol). PAST MEDICAL HX: Chronic obstructive pulmonary disease. Immunizations: up-to-date. SOCIAL HX: Heavy tobacco smoker- less than 1 pack per day. History of heavy drug use: marijuana. No alcohol use. No infectious disease exposure. FALL RISK ASSESSMENT: Fall risk assessment completed. No fall risk identified. NUTRITIONAL RISK ASSESSMENT: The nutritional risk assessment revealed no deficiencies. FUNCTIONAL ASSESSMENT: Functional assessment: no impairments noted. LEARNING NEEDS ASSESSMENT: The learning needs assessment revealed no barriers. SKIN INTEGRITY ASSESSMENT: Skin integrity risk assessment completed. No skin integrity risk identified. --16:59 Jake Dexter R.N. PROBLEMS: Back Pain. Acute renal failure syndrome. Kidney Bruise. Tendonitis. Elevated Cholesterol. --16:56 Jake Dexter R.N. ADDITIONAL SURGERIES: Cervical laminectomy. Hemorrhoidectomy. --16:56 Jake Dexter R.N. Assessment The patient states feels the same. --16:59 Jake Dexter R.N. Interventions ID band on patient. --16:59 Jake Dexter R.N. PHYSICAL ASSESSMENT To room via stretcher. GENERAL / NEURO / PSYCH: Alert. Oriented X 4. Appears in pain and anxious. RESPIRATORY: Moderate respiratory distress. Crackles in the right lung base posteriorly; crackles in the left lung base posteriorly. CVS: Cardiac rhythm: sinus tachycardia. SKIN: Skin is pale. Skin is warm and dry. --17:00 Jake Dexter R.N. CVS: Pulses: right radial 2+, left radial 2+, right dorsalis pedis 1+ and left dorsalis pedis 1+. Capillary refill is greater than 2 seconds. GI / : Abdomen soft and nontender. Diminished bowel sounds in all quadrants. --17:03 Jake Dexter R.N. GENERAL / NEURO / PSYCH: Oriented X 4. Appears in distress. Decreased awareness (lethargic). HEENT: Mucous membranes are pink. RESPIRATORY: Moderate respiratory distress. The patient can speak in full sentences. Prolonged expirations. Crackles present bilaterally. CVS: Cardiac rhythm: sinus tachycardia. Pulses: right radial 2+, left radial 2+, right dorsalis pedis 1+ and left dorsalis pedis 1+. Capillary refill less than 2 seconds. GI / : Abdominal tenderness in the lower abdomen. SKIN: Skin is warm and dry. --21:43 Jake Dexter R.N. NURSING PROGRESS NOTES The plan of care for this patient has been created. Oxygen administered. Monitoring of patient in place. Patient gowned. Head of bed elevated. Reassurance given. Two patient identifiers checked. Call light placed in reach. Side rails up x 2. Bed placed in lowest position. Patient ready for evaluation- RETAIL ADVERTISING SALES MANAGER notified. ( EMS got Pt situated in room, IVF infusing, labs drawn, monitoring in place, RETAIL ADVERTISING SALES MANAGER in to assess Pt.). --17:01 Jake Dexter R.N. 17:04 07/24/16. BP: 119/58. HR: 119. RR: 24. O2 saturation: 91% on nasal cannula at 2 liters/minute. --17:04 Jake Dexter R.N. <<STRICKEN ENTRY-- ( Increased Pt's 02, only satting 91% on 2L. Pt does not wear 02 at home.). --17:06 Jake Dexter R.N. --END STRIKE>> Correction --17:08 Jake Dexter R.N. <<STRICKEN ENTRY-- 17:04 07/24/16. O2 saturation: 94% on nasal cannula at 4 liters/minute. --17:06 Jake Dexter R.N. --END STRIKE>> Wrong Value. --17:08 Jake Dexter R.N. 16:51 07/24/2016 Site #1 started prior to arrival by EMS via IV in the right antecubital space with an 18g angiocath. --17:06 Jake Dexter R.N. Patient ID band checked for patient name and birthdate: patient confirmed. Blood samples drawn from the right antecubital space peripheral IV site with syringe by nurse per protocol ; labeled in presence of the patient and sent to lab: rainbow set: blood culture (2nd set). Initial blood discarded. Line flushed with 10 mL normal saline post blood draw. --17:07 Jake Dexter R.N. 17:17 07/24/16. BP: 116/66. HR: 118. RR: 25. O2 saturation: 92% on nasal cannula at 2 liters/minute. --17:18 Jake Dexter R.N. ( MD at bedside to assess Pt, daughter at bedside.). --17:28 Jake Dexter R.N. 17:38 07/24/2016 Started bag #1 1000 mL IV Fluids IV NS (Saline); at 150 mL/hr over 4 hour(s) via site #1 via IV pump. Allergies verified and confirmed 5 rights. IV patency established. IV site checked: no pain, redness, or swelling. IV flushed thoroughly pre- and post-medication administration. Completed per protocol. --17:38 Jake Dexter R.N. 17:38 07/24/2016 Zofran (Ondansetron HCl) IVP 4 mg given over 2 minute(s) via site #1. Allergies verified and confirmed 5 rights. IV patency established. IV site checked: no pain, redness, or swelling. IV flushed thoroughly pre- and post-medication administration. IVP given by RN. --17:38 Jake Dexter R.N. 17:46 07/24/2016 Demerol (Meperidine HCl) IVP 12.5 mg given over 2 minute(s) via site #1. Allergies verified and confirmed 5 rights. IV patency established. IV site checked: no pain, redness, or swelling. IV flushed thoroughly pre- and post-medication administration. IVP given by RN. --17:46 Jake Dexter R.N. EKG time: (1741). EKG was ordered, performed by a tech and shown to the ED physician. --17:47 Juanis Hemphill, CHANDNI Tech1 Critical value relayed to ED by Lab. Critical value received by Hugo. WBC 25.5, HGB 6.4, HCT 18.9. Critical value read back. ED physician and charge nurse notifed of critical value. --17:55 Hugo Leal R.N. Critical value relayed to ED by LAB. Critical value received by Jake NATARAJAN. BUN: 115. Critical value read back. Verified lab result. ED physician notifed of critical value. --18:04 Jake Dexter R.N. 18:09 07/24/16. BP: 114/67. HR: 133. RR: 35. O2 saturation: 96% on nasal cannula at 2 liters/minute. Pain level now: 810. --18:10 Jake Dexter R.N. 18:31 07/24/16. BP: 98/61. HR: 122. RR: 22. O2 saturation: 92% on nasal cannula at 2 liters/minute. --18:31 Jake Dexter R.N. Patient returned from CT by stretcher with nurse and tech. --18:31 Jake Dexter R.N. ( Pt c/o intense pain to lower back, grimacing, blood banded and info sent to lab for type/cross.). --18:32 Jake Dexter R.N. 18:32 07/24/16. BP: 104/59. HR: 122. --18:32 Jake Dexter R.N. 18:28 07/24/2016 Demerol IVP Response: no adverse reaction symptoms are the same. --18:33 Jake Dexter R.N. 18:32 07/24/2016 Zofran IVP Response: no adverse reaction. --18:32 Jake Dexter R.N. 18:55 07/24/2016 Started bag #1 500 mL IV Fluids IV NS (Saline); bolus of 500 mL wide open via site #1. Allergies verified and confirmed 5 rights. IV patency established. IV site checked: no pain, redness, or swelling. IV flushed thoroughly pre- and post-medication administration. Completed per protocol. --18:55 Jake Dexter R.N. 18:56 07/24/16. BP: 107/63. HR: 124. RR: 19. O2 saturation: 93% on nasal cannula at 2 liters/minute. Temp: 98.1 F. Pain level now: 10/19. --19:01 Jake Dexter R.N. BLOOD PRODUCT STARTED: consent signed, ID band checked and blood product verified to order and patient's blood band by 2 staff members. #1 unit PRBC via IV pump (150 mL/hr). See transfusion record. --19:01 Jake Dexter R.N. 19:04 07/24/2016 Site #2 started via IV in the left antecubital space with an 18g angiocath, with aseptic technique and good blood return; one attempt. Saline lock flushed with 10 mL saline. --19:04 Jake Dexter R.N. 19:04 07/24/2016 Dilaudid (HYDROmorphone HCl PF) IVP 0.5 mg given over 2 minute(s) via site #1. Allergies verified, confirmed 5 rights and sedative warning given to the patient. IV patency established. IV site checked: no pain, redness, or swelling. IV flushed thoroughly pre- and post-medication administration. IVP given by RN. --19:04 Jake Dexter R.N. ( Pt resting in bed, LOC has decreased, Pt does respond to verbal stimuli, monitoring at bedside.). --19:05 Jake Dexter R.N. 19:10 07/24/2016 Started 750 mg of Levaquin (Levofloxacin) IVPB in bag #1 150 mL; at 100 mL/hr over 1 hour(s) via site #2; Allergies verified and confirmed 5 rights. IV patency established site checked: no pain, redness, or swelling flushed thoroughly pre- and post-medication administration. Completed per protocol. --19:10 Jake Dexter R.N. ( Monitoring VS, Dr Sandoval at bedside to assess Pt, Pt to be admitted to ICU. Awaiting transport to CT.). --19:18 Jaek Dexter R.N. Gastroccult test negative. (POC test reference range: negative). --19:19 Jake Dexter R.N. 19:16 07/24/2016 IV Fluids IV NS via IV site #1 Rate Changed: bag #1 decreased to 250 mL/hr via IV pump. IV patency established. IV site checked: no pain, redness, or swelling. IV flushed thoroughly. Confirmed 5 Rights. --19:21 Jake Dexter R.N. 19:26. Patient transported to CT by stretcher with nurse and tech. --19:26 Aurelio Mariano R.N. Patient returned from CT by stretcher with nurse and tech. (19:38 Jul 24 2016). --19:38 Jake Dexter R.N. ( Blood infusing, Pt tolerating well, VSS, monitoring at bedside.). --19:41 Jake Dexter R.N. 18:43 07/24/2016 IV Fluids IV NS Discontinued: discontinued. --20:11 Jake Dexter R.N. 19:55 07/24/2016 Site #3 started via IV in the right wrist with an 20g angiocath, with aseptic technique and good blood return; one attempt. Saline lock flushed with 10 mL saline. --20:35 Jake Dexter R.N. 20:00 07/24/16. ( Started 2nd unit of blood, Pt's VS remain stable, he is resting, monitoring in place, awaiting transport for admission to ICU.). --20:06 Jake Dexter R.N. ( 3rd unit of blood started, Pt tolerating well, Vitals stable, BP WNL, antibiotics infusing as ordered. Pt's daughter at bedside.). --20:24 Jake Dexter R.N. 20:12 07/24/2016 Dilaudid IVP Response: no adverse reaction symptoms have improved the patient feels better. --20:27 Jake Dexter R.N. 20:34 07/24/2016 Levaquin IVPB Discontinued: bag #1 infused. Total amount infused: 150 mL. IV patency established. IV site checked: no pain, redness, or swelling. IV flushed thoroughly. --20:34 Jake Dexter R.N. 20:36 07/24/2016 Started 2 gm of Vancomycin IVPB in bag #1 500 mL; at 270 mL/hr over 2 hour(s) via site #3 via IV pump. Allergies verified and confirmed 5 rights. IV patency established. IV site checked: no pain, redness, or swelling. IV flushed thoroughly pre- and post-medication administration. Completed per protocol. --20:36 Jake Dexter R.N. 14 fr benson catheter placed. Reason for indwelling catheter: critical need to monitor intake and output. During procedure hand hygiene observed and sterile equipment and aseptic technique used. Return of 400 mL yellow-colored urine; attached to bedside drainage bag positioned below the bladder and secured with stabilization device. He tolerated procedure well. --20:47 Jake Dexter R.N. ( 4th unit of blood started, Pt remains stable, VSS, waiting for bed to become available in ICU.). --20:54 Jake Dexter R.N. ( Attempted to call report, rm [id number] is still being cleaned at this time and RN was unable to take report. RN will call back when she is available.). --21:17 Jake Dexter R.N. BLOOD PRODUCT DISCONTINUED: #4 PRBC. No adverse reaction noted. See transfusion record. Per protocol: IV fluid bolus given (see medication / fluid packaging manager). --21:35 Jake Dexter R.N. 21:30 07/24/16. BP: 153/75. HR: 104. RR: 20. O2 saturation: 100% on nasal cannula at 2 liters/minute. Temp: 97.8 F. Pain level now: 08/19. --21:35 Jake Dexter R.N. ( Pt tolerated blood products well, no adverse reactions, vitals stable, Pt reports his pain is improved, awake in room, daughter at bedside (Kerry).). --21:42 Jake Dexter R.N. Reassessment after fluids administered, procedure and intervention (Blood product administration). He has had no adverse reaction. Overall patient status is improved- he states feels better. --21:44 Jake Dexter R.N. 22:20 late entry -. Critical value relayed to ED by qa architect. Critical value received by Lu Watt RN. Lactic Acid 2.9. Critical value. Verified lab result and patient ID. ED physician notifed of critical value (called placed to CCU to inform [facility] of critical value as pt had already been transported to unit.). --23:54 Lu Watt R.N. Intake & Output IV fluids: 1000 mL. PRBC's: 4 units. Urine: 400 mL, with return of yellow-colored urine. --21:36 Jake Dexter R.N. DISPOSITION / DISCHARGE Report was given to a nurse in person. Report included patient's care, treatment, medications, reviewed medication reconcilliation, and condition (including any recent changes or anticipated changes). All questions were answered. Report was acknowledged and care was transferred. (to [facility]). --21:57 Jake Dexter R.N. Condition at departure: critical. The goals identified in the patient's plan of care were met. Admitted to the Critical Care Unit (bed 303). ( Pt transported to CCU with RN via monitoring, VSS, Pt alert, cooperative, able to make needs known. Further report given at bedside.). --22:21 Jake Dexter R.N. Departure time: 22:20 Jul 24 2016. --22:26 Jake Dexter R.N. Locked/Released at 07/25/2016 0:36 by Jake Dexter R.N.
--- NOTE | 2016-07-24 19:08 | ED CLINICAL REPORT ---
Clinical Report - Physicians/Mid Levels [facility] [address] [place] [address] 07/24/2016 16:50 Patient: KURT MILES Time Seen: 17:32 Jul 24 2016. Arrived- By ambulance. Historian- patient and EMS personnel. CPT: Critical care < 74 min plus (#[id number]) and 30-74 min plus (#[id number]). EKG interpretation (#[id number]). HISTORY OF PRESENT ILLNESS Chief Complaint: DYSPNEA. 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 New onset abdominal pain , lower abdomen associated with vomiting for past 2 days. Feels he is short of breath due to pain. and is still present. The dyspnea is described as moderate and is worsened by exertion and is improved by rest. The patient has had a cough and dyspnea on exertion. No dizziness or palpitations. Similar symptoms previously: None. Recent medical care: The patient was seen recently at this facility in the emergency department (1 weeks ago). Seen for low back pain. Diagnosis: (DJD). REVIEW OF SYSTEMS The patient has had muscle aches, nausea, vomiting, abdominal pain and weakness. No eye irritation, sore throat or throat, nasal discharge or sinus drainage. No diarrhea, black stools or stools or bloody stools or stools. No headache, fainting episodes, difficulty with urination, excessive urination or skin rash. No enlarged lymph nodes, hematuria, diabetic symptoms or easy bruising. All systems otherwise negative, except as recorded above. PAST HISTORY Back Pain. Acute renal failure syndrome. Kidney Bruise. Tendonitis. Elevated Cholesterol. ADDITIONAL SURGERIES: Cervical laminectomy. Hemorrhoidectomy. Medications: Fish Oil + D3 Oral. Krill Oil [place]-3 Oral. Niacin ER Oral 1000mg, daily. Rosuvastatin Calcium Oral 10 mg, daily. Tricor Oral (Tablet 145 mg) 1 tablet, daily. Cyclobenzaprine HCl Oral. TraMADol HCl Oral. Ibuprofen Oral. Allergies: Betadine. Malt Vinegar. SOCIAL HISTORY Heavy tobacco smoker (cigarette)- 1 pack per day. History of drug use: marijuana. No alcohol use. ADDITIONAL NOTES The nursing notes have been reviewed. PHYSICAL EXAM Vital Signs: 07/24/2016 16:53 BP: 111/56. HR: 136. RR: 25. O2 saturation: 95%. Temp: 97.8 F. Pain level now: 8/10. Appearance: Alert. Appears to be in pain. Patient in moderate distress. Eyes: Pale conjunctivae. Eyes normal inspection. ENT: Nose normal. Dry mucous membranes present. Pharynx normal. Uvula midline. Neck: Normal inspection. No meningeal signs. CVS: Tachycardia. Heart sounds normal. Pulses normal. Respiratory: Moderate respiratory distress with tachypnea. Speaks short phrases. Moderate bilateral rhonchi present diffusely. Moderate rales present in the lower two-thirds of both lung allison. Abdomen: Soft. Moderate tenderness in the right lower quadrant, left lower quadrant and lower abdomen with guarding present. Abnormal bowel sounds: diminished. Obese. Back: (tender paralumbar soft tissue.). Rectal: Rectal exam normal and nontender. Stool heme negative. (POC test reference range: negative). Skin: Skin warm. No rash. Pale. Extremities: Extremities exhibit normal ROM. Neuro: Oriented X 3. No motor deficit. No sensory deficit. LABS, X-RAYS, AND EKG EKG: Normal sinus rhythm. Tachycardia. Normal P waves. Normal QRS complex. Normal axis. Normal ST and T waves. Prior EKG unavailable. The study has been interpreted contemporaneously. The study has been independently viewed by me. The EKG appears to be a good tracing. Chest X-ray: Infiltrate in the right lower lobe. Consistent with pneumonia. Views: AP (portable). Technique: good. The X-rays were independently viewed by me and interpreted by the radiologist. Abdominal CT: mild pancreatitis, swelling right psoas, DJD of the spine. Abdominal CT performed without contrast. The study was independently viewed by me, interpreted by the radiologist and discussed with the radiologist. Chest CT: Hilar adenopathy. 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 Mediastinal adenopathy. Moderate right effusion.). Chest CT performed without contrast. The study was independently viewed by me, interpreted by the radiologist and discussed with the radiologist. Laboratory Tests: CBC w Diff: (GURDEEP: 07/24/2016 17:05) ( MsgRcvd 07/24/2016 19:12) Final results Test Result Flag Units (Reference) WHITE BLOOD COUNT 25.5 *H K/uL (4.5-11.5) CRITICAL RESULTS CALLEDCalled to BRADLEY , 07/24/16 1804Were 2 patient identifiers used? YESWas the result read back? YES RED BLOOD COUNT 2.09 L M/uL (4.50-5.90) HEMOGLOBIN 6.4 *L gm/dL (13.5-17.5) CRITICAL RESULTS CALLEDCalled to BRADLEY , 07/24/16 1804Were 2 patient identifiers used? YESWas the result read back? YES HEMATOCRIT 18.9 *L % (41.0-53.0) CRITICAL RESULTS CALLEDCalled to BRADLEY , 07/24/16 1805Were 2 patient identifiers used? YESWas the result read back? YES MEAN CELL VOLUME 91 fL (80-100) MEAN CORPUSCULAR HGB 31 pg (26-34) MEAN CORPUSCULAR HGB CONC 34 g/dL (31-37) RED CELL DISTRIBUTION WIDTH 12.8 % (11.6-14.8) PLATELET COUNT 290 K/uL (150-400) POLY % 86 H % (50-75) BAND % 4 % (0-8) LYMPH 6 L % (25-40) MONO 3 % (3-14) EOSINOPHIL % 1 % (0-4) BASOPHIL % 0 % (0-2) METAMYELOCYTE % 0 % (0-1) MYELOCYTE 0 % (0-1) OTHER CELL TYPE 0 RBC MORPHOLOGY NORMOCHROMIC~~NORMOCYTIC BNP: (GURDEEP: 07/24/2016 17:05) ( [facility] 07/24/2016 18:19) Final results Test Result Flag Units (Reference) B-TYPE NATRIURETIC PEPTIDE 130 H pg/ml (5-100) [id number]: (GURDEEP: 07/24/2016 17:05) ( [facility] 07/24/2016 18:53) Final results Test Result Flag Units (Reference) PROCALCITONIN <0.5 ng/mL (0-0.5) PCT Concentration: Interpretation : Risk/option for action PCT <=0.5 ng/mL : Systemic : Low risk forinfection(sepsis): progression to severeis not likely. : systemic infection.Local bacterial : CAUTION-PCT levelsinfection is : below 0.5 ng/mL do notpossible. : exclude an infection,because localizedinfections (withoutsystemic signs) may beassociated with suchlow levels. If PCT ismeasured very earlyafter a bacterialchallenge (usually <6hours), these valuesmay still be low. Inthis case PCT shouldbe re-assessed 6-24hours later. PCT >0.5 and : Systemic infection: Moderate risk for<= 2 ng/mL : (sepsis) is : progression to severepossible, but : systemic infection.other conditions : The patient should beare known to : closely monitoredelevate PCT. : both clinically andby re-assessing PCTwithin 6-24 hours. PCT > 2 ng/mL : Systemic infection: High risk for(sepsis) is likely: progression to severeunless other : systemic infection.causes are known. : PCT >= 10 ng/mL : Important systemic: High likelihood ofinflammatory : severe sepsis orresponse, almost : septic shock.exclusively due to:severe bacterial :sepsis or septic :shock. : CHEM 13 PANEL: (GURDEEP: 07/24/2016 17:05) ( MsgRcvd 07/24/2016 18:17) Final results Test Result Flag Units (Reference) GLUCOSE 140 H mg/dL (70-110) BUN 115 *H mg/dL (7-18) CRITICAL RESULTS CALLEDCalled to REJI 07/24/16 1803Were 2 patient identifiers used? YESWas the result read back? YES CREATININE 5.9 H mg/dL (0.6-1.3) Estimated GFR 9.90 mL/min Estimated GFR- 12.00 mL/min Note: Persistent reduction over 3 months in eGFR<60 mL/min/1.73 m2 defines CKD. Patients with eGFR values>=60 mL/min/1.73 m2 may also have CKD if evidence ofpersistent proteinuria. Additional information may be foundat www.[email or web address].org. SODIUM 130 L mmol/L (136-145) POTASSIUM 5.6 H mmol/L (3.5-5.1) CHLORIDE 93 L mmol/L (98-107) CARBON DIOXIDE 16 L mmol/L (21-32) CALCIUM 9.8 mg/dL (8.5-10.1) TOTAL PROTEIN 6.9 g/dL (6.4-8.2) ALBUMIN 2.6 L g/dL (3.3-5.0) BILIRUBIN, TOTAL 0.8 mg/dL (0.0-1.0) ALKALINE PHOSPHATASE 55 U/L (46-116) AST (SGOT) 17 U/L (15-37) ALT (SGPT) 19 U/L (12-78) MAGNESIUM 2.1 mg/dL (1.8-2.4) LIPASE 1677 H U/L (73-393) AMYLASE 391 H U/L (25-115) CPK 110 U/L (24-260) TROPONIN I <0.05 ng/mL (0.00-1.5) TROPONIN REFERENCE RANGE:<0.1 NEGATIVE0.1-1.5 INDETERMINANT>1.5 POSITIVE C-REACTIVE PROTEIN 21.6 H mg/dL (0.0-0.9) Type & Cross: (GURDEEP: 07/24/2016 17:05) ( MsgRcvd 07/24/2016 19:54) IP Test Result Flag Units (Reference) PATIENT BLOOD TYPE O Positive Above is a corrected result. Previously reported on ( MsgRcvd 07/24/2016 19:18) as: PATIENT BLOOD TYPE O Positive ANTIBODY SCREEN NEGATIVE Above is a corrected result. Previously reported on ( MsgRcvd 07/24/2016:18) as: ANTIBODY SCREEN NEGATIVE LEUKOREDUCED PACKED CELLS [id number] OP PC ISSUED 07/24/161951 [id number] OP PC XM COMPATIBLE [id number] OP PC XM COMPATIBLE [id number] ON PC ISSUED 07/24/161839 . PROGRESS AND PROCEDURES Course of Care: IV NS BC times 2 Levaquin 750 mg IV Transfuse 2 units O negative blood. Pt crossed and typed for 4 units PRBC's. Pt with pancreatitis, pneumonia, lung mass, pulmonary effusion, severe back pain, severe anemia, tachycardia and renal insufficiency due to dehydration. Sepsis with elevated lactic acid. 21:37 07/24/16. Lab delayed running lactic acid for 4 hours. Sample is on the machine now. 21:30 07/24/16. BP: 153/75. HR: 104. RR: 20. O2 saturation: 100% on nasal cannula at 2 liters/minute. Temp: 97.8 F. Pain level now: 6/10. Critical care performed (120 minutes). Time is exclusive of separately billable procedures. Time includes: direct patient care, patient reassessment, coordination of patient care, interpretation of data (laboratory data, pulse oximetry and chest xrays), review of patient's medical records and documentation of patient care- see progress notes. Procedures included in critical care time: peripheral IV placement and phlebotomy- see progress notes. Procedures excluded from critical care time: electrocardiography. Discussed case with patient's primary care provider, Blaire). Reviewed test results. Agreed upon treatment plan and decision to admit. Health care provider will see patient in hospital. Patient/family counseled. Old medical records ordered. Disposition orders written. Disposition: Admitted to the Critical Care Unit. CLINICAL IMPRESSION Bacterial bronchopneumonia with hypoxemia. Vital signs recorded and reviewed; empiric antibiotics given in the ED. Right lung masswith effusion Renal insufficiency Severe dehydration Severe anemia in need of transfusion Acute pancreatitis Severe low back pain Sepsis. (Electronically signed by Carmelo Merrill MD 07/24/2016 22:38)
--- NOTE | 2016-07-24 22:20 | DIAGNOSTIC IMAGING REPORT ---
PROCEDURE: CT THORAX WITHOUT CONTRAST INDICATION: CHEST PAIN TECHNIQUE: Noncontrast axial images were obtained of the chest with coronal and sagittal reformations. COMPARISON: Chest x-ray Performed the same day FINDINGS: There is an ovoid, spiculated, right suprahilar soft tissue mass in the right upper lobe measuring approximately 6.0 cm in transverse diameter by approximately 3.0 centimeters in AP diameter, and 3.7 cm in craniocaudal dimension. The margins are irregular, spiculated laterally with tethering to, and thickening of the adjacent lateral pleural surface. Abnormal tissue extends directly to the hilar structures. There is moderate adenopathy and diffuse narrowing of right upper lobe bronchi, bronchus intermedius, and proximal lower lobe bronchi. There is fairly bulky extensive right hilar adenopathy, subcarinal adenopathy (3.1 cm in short axis), right paratracheal and posterior tracheal adenopathy which results in leftward tracheal deviation. Anterior paratracheal, precarinal, and small AP window lymph nodes are present. There are inflammatory changes in the anterior mediastinum as well as multiple enlarged anterior mediastinal/ substernal lymph nodes. Mildly enlarged left supraclavicular lymph nodes are visible. Moderate aortic arch atherosclerosis. Heavy mitral annular calcification. Small anterior pericardial effusion and diffuse anterior pericardial thickening. Moderate right pleural effusion and dense right lower lobe consolidation at the right lung base. There are mild emphysematous changes in the right upper lobe and minimally in the left upper lobe. Tiny subpleural left posterolateral lower lobe lung nodule (series 3 image 40). Minor atelectatic change left lung base. No suspicious osseous lesions. Mild disc endplate degenerative changes T8-9 and T9-10. IMPRESSION: 1. Right upper lobe lung mass is concerning for neoplasm but an infectious/inflammatory process is not entirely excluded. 2. Fairly extensive hilar, middle, and anterior mediastinal adenopathy. Additionally, suspicious left supraclavicular lymph nodes are seen. 3. Right lower lobe consolidation may be infectious/inflammatory, or post obstructive. 4. Right pleural effusion may be reactive or malignant. 5. Heavy mitral annular calcification. 6. Small pericardial effusion and anterior pericardial thickening.
[2016-07-24 22:24] VITALS: BP 153/71
[2016-07-24 23:12] VITALS: BP 154/81
[2016-07-25] VITALS (24 sets, daily range): BP systolic 83–452; BP diastolic 34–92
--- NOTE | 2016-07-25 00:36 | ED MED RECONCILIATION SUMMARY ---
Patient: KURT MILES Medication Reconciliation Report [facility] VisitID: [id number] [address] [place] [address] 76y, M Registration Date/Time: 07/24/2016 Weight: 77.5 kg Height/Length: 65 in. BMI: 28.5 ALLERGIES: Betadine, Malt Vinegar The patient's Home Medications are listed below: THE FOLLOWING MEDICATIONS NEED TO BE RECONCILED: Cyclobenzaprine HCl Oral Fish Oil + D3 Oral Ibuprofen Oral Krill Oil [place]-3 Oral Niacin ER Oral 1000mg, daily Rosuvastatin Calcium Oral 10 mg, daily TraMADol HCl Oral Tricor Oral (145 mg) 1 tablet, daily The source(s) of the original Home Medication information: Not obtained. The following Medications were given to the patient in the Emergency Department: IV NS IV Fluids bolus 0, then 150 mL/hr, administered: 07/24/2016 5:38:00 PM Zofran [IVP] IVP 4 mg, administered: 07/24/2016 5:38:00 PM Demerol [IVP] IVP 12.5 mg, administered: 07/24/2016 5:46:00 PM IV NS IV Fluids bolus 500 mL wide open, administered: 07/24/2016 6:55:00 PM Dilaudid [IVP] IVP 0.5 mg, administered: 07/24/2016 7:04:00 PM Levaquin [IVPB] IVPB bolus 0, then 750 mg 100 mL/hr, administered: 07/24/2016 7:10:00 PM Vancomycin [IVPB] IVPB bolus 0, then 2 gm 270 mL/hr, administered: 07/24/2016 8:36:00 PM The following Medications were prescribed to the patient: None.
--- NOTE | 2016-07-25 00:36 | ED MAR SUMMARY ---
..... Medication Administration Record [facility] [address] [place] [address] Patient: KURT MILES Visit ID: [id number] 76y, M Weight: 77.5 kg Height/Length: 65 in BMI: 28.5 ALLERGIES: Malt Vinegar, Betadine Start 17:38 07/24/2016 Jake Dexter R.N., Stop 18:43 07/24/2016 Jake Dexter R.N. Medication Administered: IV NS (SALINE), Dose: IV Fluids over 4 hour(s), Rate: 150 mL/hr, Dispensed: 1000 mL bag, Site: #1 right AC. Medication Ordered: IV NS : initial bolus none -, then 150 mL/hr for 4h (NOW); Routine. Given 17:38 07/24/2016 Jake Dexter R.N. Medication Administered: ZOFRAN [IVP] (ONDANSETRON HCL), Dose: 4 mg IVP over 2 minute(s), Site: #1 right AC. Medication Ordered: Zofran IV 4 mg (NOW). Given 17:46 07/24/2016 Jake Dexter R.N. Medication Administered: DEMEROL [IVP] (MEPERIDINE HCL), Dose: 12.5 mg IVP over 2 minute(s), Site: #1 right AC. Medication Ordered: Demerol IV 12.5 mg (NOW). Start 18:55 07/24/2016 Jake Dexter R.N. Medication Administered: IV NS (SALINE), Dose: IV Fluids, Bolus: 500 mL wide open, Dispensed: 500 mL bag, Site: #1 right AC. Medication Ordered: IV NS : initial bolus 500 mL (1000 mL/hr), then 250 mL/hr for 4h (NOW); Routine. Given 19:04 07/24/2016 Jake Dexter R.N. Medication Administered: DILAUDID [IVP] (HYDROMORPHONE HCL PF), Dose: 0.5 mg IVP over 2 minute(s), Site: #1 right AC. Medication Ordered: Dilaudid IV 0.5 mg (NOW). Start 19:10 07/24/2016 Jake Dexter R.N., Stop 20:34 07/24/2016 Jake Dexter R.N. Medication Administered: LEVAQUIN [IVPB] (LEVOFLOXACIN), Dose: 750 mg IVPB over 1 hour(s), Rate: 100 mL/hr, Dispensed: 150 mL bag, Site: #2 left AC. Medication Ordered: Levaquin IV 750 mg/150 mL (NOW). Start 20:36 07/24/2016 Jake Dexter R.N. Medication Administered: VANCOMYCIN [IVPB], Dose: 2 gm IVPB over 2 hour(s), Rate: 270 mL/hr, Dispensed: 500 mL bag, Site: #3 right wrist. Medication Ordered: Vancomycin IV 25 mg/kg (NOW).
--- NOTE | 2016-07-25 00:36 | ED MAR SUMMARY ---
..... Medication Administration Record Merg[facility] With [facility] [address] [place] [address] Patient: KURT MILES Visit ID: [id number] 76y, M Weight: 77.5 kg Height/Length: 65 in BMI: 28.5 ALLERGIES: Malt Vinegar, Betadine Start 17:38 07/24/2016 Jake Dexter R.N., Stop 18:43 07/24/2016 Jake Dexter R.N. Medication Administered: IV NS (SALINE), Dose: IV Fluids over 4 hour(s), Rate: 150 mL/hr, Dispensed: 1000 mL bag, Site: #1 right AC. Medication Ordered: IV NS : initial bolus none -, then 150 mL/hr for 4h (NOW); Routine. Given 17:38 07/24/2016 Jake Dexter R.N. Medication Administered: ZOFRAN [IVP] (ONDANSETRON HCL), Dose: 4 mg IVP over 2 minute(s), Site: #1 right AC. Medication Ordered: Zofran IV 4 mg (NOW). Given 17:46 07/24/2016 Jake Dexter R.N. Medication Administered: DEMEROL [IVP] (MEPERIDINE HCL), Dose: 12.5 mg IVP over 2 minute(s), Site: #1 right AC. Medication Ordered: Demerol IV 12.5 mg (NOW). Start 18:55 07/24/2016 Jake Dexter R.N. Medication Administered: IV NS (SALINE), Dose: IV Fluids, Bolus: 500 mL wide open, Dispensed: 500 mL bag, Site: #1 right AC. Medication Ordered: IV NS : initial bolus 500 mL (1000 mL/hr), then 250 mL/hr for 4h (NOW); Routine. Given 19:04 07/24/2016 Jake Dexter R.N. Medication Administered: DILAUDID [IVP] (HYDROMORPHONE HCL PF), Dose: 0.5 mg IVP over 2 minute(s), Site: #1 right AC. Medication Ordered: Dilaudid IV 0.5 mg (NOW). Start 19:10 07/24/2016 Jake Dexter R.N., Stop 20:34 07/24/2016 Jake Dexter R.N. Medication Administered: LEVAQUIN [IVPB] (LEVOFLOXACIN), Dose: 750 mg IVPB over 1 hour(s), Rate: 100 mL/hr, Dispensed: 150 mL bag, Site: #2 left AC. Medication Ordered: Levaquin IV 750 mg/150 mL (NOW). Start 20:36 07/24/2016 Jake Dexter R.N. Medication Administered: VANCOMYCIN [IVPB], Dose: 2 gm IVPB over 2 hour(s), Rate: 270 mL/hr, Dispensed: 500 mL bag, Site: #3 right wrist. Medication Ordered: Vancomycin IV 25 mg/kg (NOW).
--- NOTE | 2016-07-25 00:36 | ED MED RECONCILIATION SUMMARY ---
Patient: KURT MILES Medication Reconciliation Report VisitID: [id number] [address] [place] [address] 76y, M Registration Date/Time: 07/24/2016 Weight: 77.5 kg Height/Length: 65 in. BMI: 28.5 ALLERGIES: Betadine, Malt Vinegar The patient's Home Medications are listed below: THE FOLLOWING MEDICATIONS NEED TO BE RECONCILED: Cyclobenzaprine HCl Oral Fish Oil + D3 Oral Ibuprofen Oral Krill Oil [place]-3 Oral Niacin ER Oral 1000mg, daily Rosuvastatin Calcium Oral 10 mg, daily TraMADol HCl Oral Tricor Oral (145 mg) 1 tablet, daily The source(s) of the original Home Medication information: Not obtained. The following Medications were given to the patient in the Emergency Department: IV NS IV Fluids bolus 0, then 150 mL/hr, administered: 07/24/2016 5:38:00 PM Zofran [IVP] IVP 4 mg, administered: 07/24/2016 5:38:00 PM Demerol [IVP] IVP 12.5 mg, administered: 07/24/2016 5:46:00 PM IV NS IV Fluids bolus 500 mL wide open, administered: 07/24/2016 6:55:00 PM Dilaudid [IVP] IVP 0.5 mg, administered: 07/24/2016 7:04:00 PM Levaquin [IVPB] IVPB bolus 0, then 750 mg 100 mL/hr, administered: 07/24/2016 7:10:00 PM Vancomycin [IVPB] IVPB bolus 0, then 2 gm 270 mL/hr, administered: 07/24/2016 8:36:00 PM The following Medications were prescribed to the patient: None.
--- NOTE | 2016-07-25 00:36 | ED DISCHARGE INSTRUCTIONS ---
Patient: KURT MILES General Instructions [facility] VisitID: [id number] [place] [address] 76y, M Registration Date/Time: 07/24/2016 Bacterial bronchopneumonia with hypoxemia. Vital signs recorded and reviewed; empiric antibiotics given in the ED. Right lung masswith effusion Renal insufficiency Severe dehydration Severe anemia in need of transfusion Acute pancreatitis Severe low back pain Sepsis. ADDITIONAL INFORMATION Pneumonia (Adult) Pneumonia is an infection deep within the lung, in the small air sacs (alveoli). It may be due to a virus or bacteria and is usually treated with an antibiotic. Severe cases require treatment in the hospital. Milder cases can be treated at home. Symptoms usually start to improve during the first2 days of treatment. Home Care: Rest at home for the first 23 days or until you feel stronger. When resuming activity, dont let yourself become overly tired. Avoid exposure to cigarette smoke (yours or others). You may use acetaminophen (Tylenol) or ibuprofen (Motrin, Advil) to control fever or pain, unless another medicine was prescribed. [NOTE: If you have chronic liver or kidney disease or ever had a stomach ulcer or GI bleeding, talk with your doctor before using these medicines.] (Aspirin should never be used in anyone under 18 years of age who is ill with a fever. It may cause severe liver damage.) Your appetite may be poor so a light diet is fine. Keep well hydrated by drinking 68 glasses of fluids per day (water, sport drinks such as Gatorade, sodas without caffeine, juices, tea, soup, etc.). This will help loosen secretions in the lung, making it easier for you to cough up the phlegm (sputum). If you also have heart or kidney disease, check with your doctor before you drink extra amounts of fluids. Finish all antibiotic medicine prescribed, even if you are feeling better after a few days. Follow Up with your doctor in the next 23 days (or as advised) to be sure you are responding properly to the medicine. [NOTE: If you are age 65 or older, or if you have chronic lung disease (asthma, emphysema or COPD), we recommendthe pneumococcal vaccination and a yearlyinfluenzavaccination(flu-shot) every . Ask your doctor about this.] Get Prompt Medical Attention if any of the following occur: Not getting better within the first 48 hours of treatment Increasing shortness of breath or rapid breathing (over 25 breaths/minute) Coughing up blood or increasing chest pain with breathing Fever of 100.4F (38C) oral or higher, not better with fever medication Increasing weakness, dizziness or fainting Increasing thirst or dry mouth Sinus pain, headache or a stiff neck Chest pain not caused by coughing You have been given the following additional information: Pneumonia (Adult) (Electronically signed by Carmelo Merrill MD 07/24/2016 22:38)
[2016-07-25] MEDS ORDERED: FISH OIL + D3 (02:26)
[2016-07-25] MEDS ORDERED: CYCLOBENZAPRINE10 MG PO (02:26)
[2016-07-25] MEDS ORDERED: IBUPROFEN400 MG PO (02:27)
[2016-07-25] MEDS ORDERED: NIACIN ER500 MG PO (02:27)
[2016-07-25] MEDS ORDERED: KRILL OIL OMEG300 MG (02:27)
[2016-07-25] MEDS ORDERED: TRAMADOL HCL50 MG PO (02:28)
[2016-07-25] MEDS ORDERED: CRESTOR10 MG PO (02:28)
[2016-07-25] MEDS ORDERED: TRICOR145 MG (02:29)
--- NOTE | 2016-07-25 03:41 | HISTORY AND PHYSICAL ---
ADMITTED: 07/24/2016 HISTORY OF PRESENT ILLNESS: The patient a 76-year-old white male who has developed a number of pain symptoms over the last 3 to 4 weeks, which he attributed to becoming worn out after taking an extended road trip to [place]. He had to take some belongings down to a house he owns in [place] and do some work on house and then return and was driving very long distances for very long periods of time and really did not give himself any time to rest. Since he got back, he has had problems with pain in his arms and hands and quite severe pain in his back and lower back area. He attributes these to some trauma to his hands from loading his truck and then from the driving and work that he did in [place]. He did not really seem to get any better. He has been seen at my office for the hand pain and then in the emergency department several times for both the hand pain and back pain. He started to get weaker and over the last 2 to 3 days, developed some coughing and chest congestion and quite profound fatigue. He finally called his daughter this morning and she came to assist him and felt that he looked extremely ill and called 911 and had him transported here to [facility] Emergency Department. On his initial evaluation, he was found to be somewhat hypotensive. He did not have a fever. He did have a hematocrit of 18, hemoglobin of 6.8. He had an elevated white blood cell count of 25,000. Chest x-ray showing right lower lobe effusion and infiltrate, and significantly abnormal kidney function with a BUN of 119, creatinine of 5.6. Generally, his BUN and creatinine are in the 1.8 range for creatinine and BUN in the 30 range. He was quite hypotensive and was given actually 4 units of blood while he was in the emergency department and this seemed to help him feel quite a bit better. He was started on levofloxacin and vancomycin and has been transferred to the intensive care unit. He does continue with low-flow IV fluids. MEDICAL/SURGICAL HISTORY: Past medical history: Remarkable for longstanding chronic obstructive pulmonary disease without significant bronchospasm. He rarely used any inhalers. He also has longstanding hyperlipidemia with both elevated cholesterol and significantly elevated triglycerides. He has had some problems with gastroesophageal reflux, but not severe. He has had some problems with cervical degenerative disk problems and has had surgery on his neck in the past. He also had some lumbar disk problems. He has had somewhat elevated PSA level and some mild bladder outflow symptoms at times but not severe. Past surgical history: Remarkable for hemorrhoidectomy and cervical laminectomy done quite a number of years ago. MEDICATIONS: 1. Cyclobenzaprine 10 mg one 3-4 times daily for back muscle spasm. 2. Ibuprofen 600 mg 3-4 times daily for pain and inflammation. 3. Niacin extended release type 1000 mg 1 daily. 4. Rosuvastatin 10 mg strength 1 daily for cholesterol. 5. TriCor 145 mg 1 daily for triglycerides. 6. Tramadol 50 mg 1 every 4-6 hours for pain control. ALLERGIES: 1. THE PATIENT HAS AN ALLERGY TO CIDER VINEGAR. 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 He is currently . He has been a longstanding smoker, smoking at least a pack per day until the last year or so and he has managed to cut down to just a half pack per day. He did drink quite a bit of alcohol in the remote past, but over the last 15-20 years, has had very little alcohol to drink. He does smoke marijuana fairly frequently. FAMILY HISTORY: Remarkable for a father who had problems with his heart and rheumatic fever and of problems related to his heart around age 73. The patient's mother also had some heart problems and developed dementia and around age 80. REVIEW OF SYSTEMS: HEENT: Has been okay. Respiratory: Remarkable for increased shortness breath, coughing and chest congestion developing over the last 2-3 days. Cardiovascular has been remarkable for some vague retrosternal chest pressure at times. Genitourinary is remarkable for some nausea and anorexia and several episodes of emesis starting this morning. He has had no hematemesis. He has had no blood in his stool. Musculoskeletal is remarkable for numbness and tingling in the hands, pain in both hands and wrists areas at times. Quite pronounced lower back pain, particularly on the right paraspinous muscle area. Genitourinary has been okay with no blood in the urine. Skin has been okay. Neurologic has been remarkable for some generalized weakness and unsteadiness. He has been a little somnolent and confused since he has had pain medication in the emergency department, but generally has had no focal neurologic symptoms. Skin has been okay with no unusual rashes. PHYSICAL EXAMINATION: GENERAL: Shows the patient currently to be in no severe distress but tachypneic. He is somewhat dysarthric due to chest congestion due to recent administration of pain medication. VITAL SIGNS: Pulse is 110-128 and regular. Blood pressure currently is in the 150/70-80 range. Oxygen saturation is 95% on 2 liters per minute of nasal prong oxygen. HEENT: Head is normal. Ear canals and tympanic membranes are normal. Eyes show pupils equal, round, react to light with normal extraocular movements. Fundi show flat disks, normal vessels. Nose is clear. Mouth shows upper and lower dentures. NECK: Supple with no distinct adenopathy felt. CHEST: Reveals coarse bilateral inspiratory and expiratory rales and rhonchi, more prominent on the right than the left. HEART: Reveals normal S1 and S2. There is a grade 1 to 2/6 systolic murmur along the left sternal border. There is no S3. ABDOMEN: Nondistended with no organomegaly or mass. Bowel tones are normal. GENITALIA: Show normal uncircumcised male with a Noble catheter in place. Testes show no masses. RECTAL: Done by Dr. Merrill in the emergency department showed no evidence of rectal mass and no evidence of blood in the stool. This was not repeated. EXTREMITIES: Show +2 lower extremity edema, left and right, which may be due to dependent edema from sitting in a chair for a prolonged periods of time as this is the most comfortable position for breathing. SKIN: Otherwise shows no rashes. NEUROLOGIC: Reveals the patient to be a little somnolent and a little slow with answers at times due to pain medication, but he is basically alert and oriented x3 and is able to identify the date after thinking about this for a while. LAB/IMAGING: Show white blood cell count to be 25,400, hemoglobin initially was 6.1 with hematocrit of 18.9. Sodium is 130, potassium 5.6, chloride 93, CO2 16, glucose 140, BUN 115, creatinine 5.9. Lactic acid is 2.5. Total bilirubin 0.5, SGOT 17, SGPT 19, alkaline phosphatase 55. BNP 130, amylase 355, lipase 1677. Troponin I is less than 0.05. CPK is 110. Chest x-ray shows right lower lobe effusion and infiltrate. Chest CT scan reveals a 6 cm x 3 cm suprahilar mass with quite significant hilar and mediastinal adenopathy and some supraclavicular adenopathy on the left. Abdominal CT scan shows diverticulosis without diverticulitis. There does seem to be some inflammation in the muscle tissue of the paraspinous muscles in the lower lumbar area on the right side. The radiologist thought there was a possibility of an intramuscular abscess, though distinct abscess cavity is not noted. IMPRESSION: 1. The patient is presenting with multifocal abnormalities. The most likely underlying problem is his right chest mass which is quite suspicious for a cancerous tumor. He also has developed significant renal insufficiency, which seems to be mostly prerenal related to dehydration. There is likely to be some chronic intrinsic renal disease as well. He has developed acute pancreatitis. He has quite profound anemia, cause of this is not entirely clear. He does not show any evidence of acute blood loss. 2. Other underlying problems include longstanding chronic obstructive pulmonary disease. 3. Longstanding hyperlipidemia. PLAN: The patient is admitted to ICU for supportive care. He has been started on levofloxacin and vancomycin and these will be continued. The pharmacist will be asked to assist with dosing. The patient will likely need a biopsy of the mass in his lungs and blood clotting test will be checked in preparation for this. Additionally, he will continue low-flow IV fluids to see how much this will correct his kidney function. He will remain n.p.o. for treatment of pancreatitis. He will be started on pantoprazole to reduce the chance of gastrointestinal bleeding. Iron studies will be checked.
--- NOTE | 2016-07-25 10:39 | DIAGNOSTIC IMAGING REPORT ---
PROCEDURE: XR CHEST 1 VIEW INDICATION: ?CHF TECHNIQUE: Portable AP view 09:12 a.m. COMPARISON: Chest 07/24/2016 FINDINGS: Further prominence of pulmonary vasculature. No change in right pleural effusion. IMPRESSION: 1. Increasing pulmonary vascular congestion and CHF.
[2016-07-26] VITALS (23 sets, daily range): BP systolic 97–132; BP diastolic 48–86
--- NOTE | 2016-07-26 07:57 | DIAGNOSTIC IMAGING REPORT ---
PROCEDURE: XR CHEST 1 VIEW INDICATION: recheck pneumonia TECHNIQUE: Single view chest. 05:20 hours COMPARISON: 07/25/2016 FINDINGS: Stable cardiomediastinal contour with prominent mediastinum. Central vessels are normal. The overall volume loss of the right hemithorax. Right upper lobe lung lesion is stable. Right lower lobe pneumonia with effusion is stable. Left lung is over aerated with minor stranding at the left base. No change to the osseous structures. IMPRESSION: 1. No change to infectious or post obstructive right lower lobe pneumonia and effusion. 2. No change to right upper lobe lung lesion and wide mediastinum consistent with adenopathy. 3. No significant central vascular congestion.
--- NOTE | 2016-07-26 10:57 | DIAGNOSTIC IMAGING REPORT ---
PROCEDURE: US SOFT TISSUE ANYWHERE INDICATION: Lung mass. Possible right paraspinous muscle mass. TECHNIQUE: Aguilera scale and color Doppler sonographic images of the right posterior paraspinous region were obtained COMPARISON: Comparison made to CT abdomen and pelvis on 07/24/2016 FINDINGS: There is a 5.5 cm heterogeneous ovoid area in the right posterior paraspinous muscles. IMPRESSION: 1. There is a 5.5 cm heterogeneous area in the right posterior paraspinous muscles. While this could represent a discrete muscle mass, this could also represent focal myositis or muscle hypertrophy. MRI of the lumbar spine may be of assistance in clarifying. 2. Findings discussed with Dr. Holland.
--- NOTE | 2016-07-26 13:53 | CONSULTATION REPORT ---
DATE OF CONSULTATION: 07/26/2016 REFERRING PHYSICIAN: Óscar Holland MD CONSULTING PHYSICIAN: Dirk Vaughn MD CHIEF COMPLAINT: 1. Medical management of the patient with multiple issues HISTORY OF PRESENT ILLNESS: This is a 76-year-old white male who was doing heavy activity in [place] in May and also drove a long distance, and since then he developed pain in the arm and hand on the left side. The patient presented to Dr. Holland, and he put him on some anti-inflammatory and antibiotic, but pain progressed to the back pain, so that patient had to come to emergency around 3 weeks ago, and was discharged home without medications. Last Sunday, pain increased. The patient developed weakness and became pale, with throwing up, and some shortness of breath, to the point that the patient had to come to the emergency, and evaluation showed the patient has multiple issues, including a lung tumor, and a mass on the lower side, along with severe anemia, and also metabolic acidosis and acute renal failure on top of chronic renal failure, so the patient was admitted to ICU. MEDICAL/SURGICAL HISTORY: Past medical history is remarkable for COPD, hyperlipidemia, GERD, also degenerative joint disease of the C-spine. Surgical history: Remarkable for a disk herniation surgery in the C-spine and a hemorrhoidectomy. Last hospitalization, as mentioned, was an ED visit 1 month ago. MEDICATIONS: 1. Flexeril 10 mg t.i.d. 2. Ibuprofen 600 mg t.i.d. 3. Niacin 100 mg once a day. 4. Rosuvastatin 10 mg daily. 5. TriCor 145 mg daily. 6. Tramadol 50 mg 4 times a day for pain control. 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 He is currently . Smoked a pack a day for longstanding years, quit 1 year ago. No recent history of alcohol use and no drug abuse. FAMILY HISTORY: Remarkable for heart disease and rheumatic fever and dementia. REVIEW OF SYSTEMS: The patient has been gaining weight recently. Some hearing loss. No difficulty with vision. No runny nose or congestion. No cough or sore throat. Shortness of breath occasionally, on and off. No chest pain or palpitations. Vomited once yesterday, but no nausea. Complains of indigestion and mild abdominal pain. Normal regular bowel movements. No frequency or incontinence, but complains of dysuria. Also of generalized body ache and some dizziness, with some headaches and tingling in the little finger, with numbness. No syncope. PHYSICAL EXAMINATION: VITAL SIGNS: Temperature is 97.4, pulse is 110-115, respirations 27, blood pressure 123/61, oxygen saturation is 97% on 3 L. GENERAL APPEARANCE: Well developed, well nourished, good body build. The patient seems calmed down now, but he was agitated 1 hour ago. HEENT: Ears: Normal tympanic membranes. Mouth: Normal hypopharynx, no exudation, no erythema. Nose: Normal mucosa. NECK: Supple. No JVD, no carotid bruits. No palpable mass. SKIN: Warm and dry with good turgor. LUNGS: The patient has crackles on the bases, with occasional rhonchi bilaterally. HEART: Regular S1, S2. No murmur. No S3 was heard. ABDOMEN: Soft, nontender. Bowel sounds are positive. No organomegaly was appreciated. EXTREMITIES: No edema. Good peripheral pulses. No signs of DVT or cyanosis. MUSCULOSKELETAL: Grossly within normal limits. NEUROLOGIC: Alert and oriented x3. Cranial nerves are grossly intact. No motor deficits. Pupils are round and reactive to light. Extraocular movements are intact. No nystagmus. No cerebellar signs. LAB/IMAGING: White blood count is 23, hemoglobin is 9.8, hematocrit 29.1, and a platelet count is 240. Blood gas: The last one, ABG pH is 7.24, slight improvement, pCO2 is 31.7, pO2 is 90, and bicarbonate is 13.6, saturation is 97.2. Sodium is 137, potassium is 5.6, chloride is 105, CO2 is 16, BUN is 102, creatinine 3.7, glucose is 99, calcium is 8.9. Magnesium is 1.8. INR is 1.2. BUN is unremarkable. CT of abdomen and pelvis shows pancreatitis and right lower lobe infiltrate, consistent with pneumonia and pleural effusion. Also possible mass in the right paraspinal area could be abscess. CT of the thorax shows a upper lobe mass or tumor, consistent with neoplasm. Chest x-ray again shows increased pulmonary congestion. IMPRESSION: 1. Acute renal failure on top of chronic renal failure 2. Metabolic acidosis, most probably due to renal failure and dehydration 3. Right upper lung mass with mass on the lower spinal area 4. Severe anemia 5. Acute pancreatitis 6. Chronic obstructive pulmonary disease 7. Pneumonia PLAN: We will the patient on Rocephin and Levaquin for pneumonia. Also, we added bicarbonate on IV fluids, since the patient has severe metabolic acidosis. We also will continue IV hydration, trying to correct kidney function and improve it. We will also keep an eye on the hyperkalemia, which is consistent with kidney failure. Right now, we are not going to do any Kayexalate or renal intervention, but I will obtain electrolytes early afternoon; if the potassium goes up, we have to do something like Kayexalate.
[2016-07-27] VITALS (58 sets, daily range): BP systolic 67–145; BP diastolic 37–104
--- NOTE | 2016-07-27 05:45 | DIAGNOSTIC IMAGING REPORT ---
PROCEDURE: XR CHEST 1 VIEW INDICATION: central line confirmation TECHNIQUE: Portable AP view 03:01 a.m. COMPARISON: Chest x-ray 07/26/2016 FINDINGS: Interval placement of a right IJ central line with the tip in the SVC. Mild progression of diffuse right lung infiltrate and small right pleural effusion. Mild left basilar scarring/atelectasis. Stable widening of the superior mediastinum. Heart size and normal. Thorax is normal. IMPRESSION: 1. Right IJ central line in satisfactory position 2. Progression of diffuse right lung infiltrate and small right pleural effusion 3. Wide mediastinum consistent with adenopathy.
--- NOTE | 2016-07-27 06:25 | Progress Note ---
Subjective General This is a 76-year-old white male who was doing heavy activity in [place] in May and also drove a long distance, and since then he developed pain in the arm and hand on the left side. The patient presented to Dr. Holland, and he put him on some anti-inflammatory and antibiotic, but pain progressed to the back pain, so that patient had to come to emergency around 3 weeks ago, and was discharged home without medications. Last Sunday, pain increased. The patient developed weakness and became pale, with throwing up, and some shortness of breath, to the point that the patient had to come to the emergency, and evaluation showed the patient has multiple issues, including a lung tumor, and a mass on the lower side, along with severe anemia, and also metabolic acidosis and acute renal failure on top of chronic renal failure, so the patient was admitted to ICU. Patient is on Bipap and not able to give any history, sleeping in bed, has developped A fib over night and was started on Cardizem drip also had to be put on Levaphed for drop in BP Review of system: Cardiac system: Atrial fibrillation started last night Respiratory system: Dyspnea increased overnight Physical Exam Vital Signs / I&Os Vital Signs Date Time Temp Pulse Resp B/P Pulse O2 O2 Flow FiO2 Ox Delivery Rate 07/27 0606 95.7 124 25 111/52 90 Bipap 100 05/18 0546 133 25 103/53 91 05/18 0530 123 28 105/37 86 05/18 0515 106/68 05/18 0509 3.0 05/18 0500 98/44 05/18 0445 102/61 05/18 0430 83/60 05/18 0425 122 94/77 05/18 0422 91/63 05/18 0414 136 21 86/47 99 05/18 0405 134 19 112/52 99 Bipap 100 05/18 0348 107/60 05/18 0331 99/57 05/18 0321 3.0 05/18 0318 132 18 85/45 99 Bipap 100 05/18 0252 132 19 78/62 100 05/18 0234 91/65 05/18 0233 80/54 05/18 0232 80/58 05/18 0231 90/69 05/18 0230 104/62 05/18 0139 145/104 05/18 0118 150 27 94 Mask 05/18 0115 3.0 07/27 0012 121 25 124/53 95 Nasal 3.0 Cannula 07/26 2319 119 21 120/56 95 Nasal 3.0 Cannula 07/26 2229 98.8 116 26 118/57 94 Nasal 3.0 Cannula 07/26 2116 Nasal 3.0 Cannula 07/26 2100 109 17 106/86 97 Nasal 3.0 Cannula 07/26 2013 124 21 102/71 96 Nasal 3.0 Cannula 07/26 1929 3.0 07/26 1856 112 26 97/61 97 Nasal 3.0 Cannula 07/26 1810 98.8 110 21 106/76 97 Nasal 3.0 Cannula 07/26 1700 98.4 108 22 106/57 97 Nasal 3.0 Cannula 07/26 1610 98.4 120 23 107/57 94 Nasal 3.0 Cannula 07/26 1510 98.4 121 26 130/67 96 Nasal 3.0 Cannula 07/26 1430 3.0 07/26 1400 97.5 116 23 114/68 96 Nasal 3.0 Cannula 07/26 1300 97.5 123 22 125/48 93 Nasal 3.0 Cannula 07/26 1210 97.3 116 27 123/61 97 Nasal 3.0 Cannula 07/26 1109 123 26 120/65 96 Nasal 3.0 Cannula 07/26 1017 97.7 123 25 128/66 95 Nasal 3.0 Cannula 07/26 0800 Nasal 3.0 Cannula 07/26 0800 121 24 118/63 94 Nasal Cannula 07/26 0718 2.0 07/26 0700 97.9 116 27 120/66 95 Nasal 2.0 Cannula I&O 07/27 0000 07/26 1600 07/26 0800 Intake Total 9397 630 5985 Output Total 531 1095 750 Balance 652 -765 1740 General Appearance Alert (sleepin on Bipap) Lungs harsh breath sounds wih ronchies and crackles Neck Supple Cardiovascular irregular rhythym with tachycardia Abdomen Normal bowel sounds, Soft, No tenderness Extremities No edema Skin No Rashes Psych/Mental Status Mental status normal (sedated) LAB Results Laboratory Tests 07/27 07/27 07/27 07/27 07/27 0400 0250 0250 0250 UNK Blood Gas Sample Site RR Total CO2 (24.0 - 30.0 mmol/L) 17.2 ABG pH (7.35 - 7.45) 7.17 ABG pCO2 at Pt Temp (35 - 45 mmHg) 43.7 ABG pO2 at Pt Temp (60.0 - 80.0 mmHg) 257.0 ABG HCO3 (20.0 - 26.0 mmol/L) 15.9 ABG O2 Sat Calc/Donny (95.1 - 100.0 %) 100.1 ABG Base Excess (-6.0 - -6.0 mmol/L) -11.5 ABG Reduced Hgb (%) -0.1 ABG Carboxyhemoglobin (0.5 - 1.5 %) 1.5 ABG Methemoglobin (0.4 - 1.5 %) 0.4 John Test YES VBG pH (7.31 - 7.41) 7.112 VBG pCO2 at Pat Temp (41 - 51 mmHg) 53.3 VBG pO2 at Pat Temp (24.0 - 40.0 mmHg) 51.2 VBG HCO3 (22.0 - 28.0 mmol/L) 17.0 VBG Total CO2 (25.0 - 29.0 mmol/L) 18.6 VBG O2 Sat (Donny) (40.0 - 70.0 %) 76.7 Other Total Hgb (14.0 - 18.0 g/dL) 8.4 A-a O2 Gradient (7.0 - 14.0 mmHg) 411.4 Hgb O2 Saturation (95.0 - 100.0 %) 98.2 Respiration Rate (/MIN) [address] FiO2 (20 - 101 %) 100 100 Pressure Support (cmH2O) 10 10 Chemistry Plasma Sodium (136 - 145 mmol/L) 138 Plasma Potassium (3.5 - 5.1 mmol/L) 5.7 Plasma Chloride (98 - 107 mmol/L) 105 CO2 (Enzymatic) (21 - 32 mmol/L) 18 BUN (7 - 18 mg/dL) 104 Creatinine (0.6 - 1.3 mg/dL) 3.2 Est GFR ( Amer) (mL/min) 24.32 Est GFR (Non-Af Amer) (mL/min) 20.07 Glucose (70 - 110 mg/dL) 116 Plasma Calcium (8.5 - 10.1 mg/dL) 8.5 Plasma Magnesium (1.8 - 2.4 mg/dL) 2.0 Creatine Kinase (24 - 260 U/L) 365 CK-MB (CK-2) (0.5 - 3.2 ng/mL) 11.2 CK/CKMB % Calc (0.0 - 4.0 %) 3.1 Troponin (0.00 - 1.5 ng/mL) <0.05 Amylase (25 - 115 U/L) 237 Lipase (73 - 393 U/L) 733 Hematology WBC (4.5 - 11.5 K/uL) 24.0 RBC (4.50 - 5.90 M/uL) 2.82 Hgb (13.5 - 17.5 gm/dL) 8.3 Hct (41.0 - 53.0 %) 25.2 MCV (80 - 100 fL) 89 MCH (26 - 34 pg) 30 RDW (11.6 - 14.8 %) 14.7 Neut % (Auto) (50 - 75 %) 87 Lymph % (Auto) (25 - 40 %) 6 Summers % (Auto) (3 - 14 %) 0 Eos % (Auto) (0 - 4 %) 0 Baso % (Auto) (0 - 2 %) 0 Band Neutrophils % (0 - 8 %) 7 Metamyelocytes % (0 - 1 %) 0 Myelocytes (0 - 1 %) 0 Other Cell Type 0 Plt Count, EDTA (150 - 400 K/uL) 228 Hypochromic-Microcytic 1+ PUBS MCHC (31 - 37 g/dL) 33 07/26 07/26 07/26 1600 1200 0900 Blood Gas Sample Site RR RB Total CO2 (24.0 - 30.0 mmol/L) 14.5 13.4 ABG pH (7.35 - 7.45) 7.24 7.18 ABG pCO2 at Pt Temp (35 - 45 mmHg) 31.7 33.1 ABG pO2 at Pt Temp (60.0 - 80.0 mmHg) 90.4 94.4 ABG HCO3 (20.0 - 26.0 mmol/L) 13.6 12.4 ABG O2 Sat Calc/Donny (95.1 - 100.0 %) 97.2 96.8 ABG Base Excess (-6.0 - -6.0 mmol/L) -12.7 -14.6 ABG Reduced Hgb (%) 2.7 3.1 ABG Carboxyhemoglobin (0.5 - 1.5 %) 2.2 2.1 ABG Methemoglobin (0.4 - 1.5 %) 0.1 0.2 John Test YES YES Other Total Hgb (14.0 - 18.0 g/dL) 9.2 9.8 A-a O2 Gradient (7.0 - 14.0 mmHg) 102.2 67.6 Hgb O2 Saturation (95.0 - 100.0 %) 95.0 94.6 O2 Liters/Min (0 - 20 L/MIN) 3 2 FiO2 (20 - 101 %) 32 28 Chemistry Plasma Sodium (136 - 145 mmol/L) 136 Plasma Potassium (3.5 - 5.1 mmol/L) 5.0 Plasma Chloride (98 - 107 mmol/L) 103 CO2 (Enzymatic) (21 - 32 mmol/L) 18 BUN (7 - 18 mg/dL) 99 Creatinine (0.6 - 1.3 mg/dL) 3.3 Est GFR ( Amer) (mL/min) 23.47 Est GFR (Non-Af Amer) (mL/min) 19.37 Glucose (70 - 110 mg/dL) 115 Plasma Calcium (8.5 - 10.1 mg/dL) 8.5 Assessment and Plan Problem List 1. Afib Plan will wean him off Diltiazem in order to wean him off Levaphed since this is part of tachycardia will start digitilizing consider Amiodron 2. Sepsis associated hypotension Plan continue Rocephin and levaquin for one more day if not improvement consider changing to Vanco with Zosyn or Invanz 3. Pneumonia Plan as above 4. Severe anemia Plan consider another transfusion if Hg dropps further, will send stool for blood 5. Renal insufficiency Plan slowly improving 6. Acidosis, metabolic Plan very slowly improving
[2016-07-28] VITALS (13 sets, daily range): BP systolic 97–127; BP diastolic 40–58
--- NOTE | 2016-07-28 07:12 | Progress Note ---
Subjective General This is a 76-year-old white male who was doing heavy activity in [place] in May and also drove a long distance, and since then he developed pain in the arm and hand on the left side. The patient presented to Dr. Holland, and he put him on some anti-inflammatory and antibiotic, but pain progressed to the back pain, so that patient had to come to emergency around 3 weeks ago, and was discharged home without medications. Last Sunday, pain increased. The patient developed weakness and became pale, with throwing up, and some shortness of breath, to the point that the patient had to come to the emergency, and evaluation showed the patient has multiple issues, including a lung tumor, and a mass on the lower side, along with severe anemia, and also metabolic acidosis and acute renal failure on top of chronic renal failure, so the patient was admitted to ICU. On Bipap, seems rested, sleepy, had a smooth night, heart rate controlled, but developped fever this am with increase WBC Review of system: Respiratory system: Stable on BiPAP Constitutional: Developed fever Cardiac system: Rate controlled no palpitations Physical Exam Vital Signs / I&Os Vital Signs Date Time Temp Pulse Resp B/P Pulse O2 O2 Flow FiO2 Ox Delivery Rate 07/28 0625 101.7 07/28 0557 109 26 97/42 100 Bipap 100 07/28 0514 108 26 97/40 94 Bipap 100 07/28 0433 113 18 118/52 98 Bipap 40 / 0326 110 18 122/56 95 Bipap 40 / 0212 97.5 102 18 121/58 95 Bipap 40 05/ 0119 97 18 127/49 100 / 0112 35.0 / 0013 87 18 115/51 94 Bipap 05/18 2315 97 18 130/45 93 Bipap 35.0 05/18 2234 97.3 05/18 2204 99 18 127/56 95 Bipap 40 05/18 2105 97.0 92 18 114/68 88 Bipap 40 05/18 203 Bipap 40 05/18 2000 97.5 88 20 99/61 95 Bipap 05/18 1925 133 05/18 1909 35.0 05/18 1902 124 20 116/51 96 Bipap 40 05/18 1806 97.5 123 16 123/56 96 Bipap 40 05/18 1657 104 16 126/53 96 Bipap 40 05/18 1631 106 05/18 1610 117/56 05/18 1607 109 12 97 Bipap 40 05/18 1510 105 22 111/88 05/18 1508 107 26 100 Bipap 40 05/18 1432 127/64 05/18 1428 99 25 95 Bipap 35.0 05/18 1400 99.7 102 20 115/53 94 Bipap 40 05/18 1346 106 24 115/56 94 Bipap 40 05/18 1300 100 15 118/58 95 Bipap 40 05/18 1245 102 22 118/45 95 Bipap 40 05/18 1242 101 05/18 1230 102 21 93/48 97 Bipap 40 05/18 1226 Bipap 40 05/18 1215 102 20 91/40 97 40 05/18 1200 100 20 105/49 97 Bipap 40 05/18 1115 100 19 100/43 05/18 1100 100 19 99/39 96 Bipap 50 05/18 1047 100 18 103/41 97 Bipap 60 05/18 1015 105 38 111/54 95 Bipap 05/18 1000 100.2 38 39 116/55 94 Bipap 60 05/18 0945 107 32 108/45 94 Bipap 60 05/18 0915 108 38 117/49 92 Bipap 05/18 0900 107 40 109/49 93 Bipap 60 05/18 0856 109 42 86 Bipap 60 05/18 0845 110 33 120/45 85 Bipap 35.0 05/18 0830 128 33 121/62 92 Bipap 35.0 05/18 0823 131 05/18 0815 133 35 122/60 92 Bipap 35.0 05/18 0800 Bipap 45 05/18 0800 137 28 99/54 95 Bipap 35.0 05/18 0730 136 30 91/68 95 Bipap 35 05/18 0715 127 31 112/65 93 Bipap 3.0 I&O 05/19 0000 05/18 1600 05/18 0800 Intake Total 76 0 Output Total 637 384 215 Balance -301 -308 -215 General Appearance No acute distress Lungs crackles in both bases Neck Supple Cardiovascular Regular rate and rhythm, Normal S1 and S2, No murmurs, gallops, rubs Abdomen Normal bowel sounds, Soft, No tenderness Extremities No edema Skin No Rashes Psych/Mental Status Mental status normal (sleepy) LAB Results Laboratory Tests 07/28 07/27 07/27 07/27 07/27 0400 1805 1615 1615 1000 Blood Gas Sample Site RR LR Total CO2 (24.0 - 30.0 mmol/L) 18.6 17.4 ABG pH (7.35 - 7.45) 7.14 7.18 ABG pCO2 at Pt Temp (35 - 45 mmHg) 49.9 42.8 ABG pO2 at Pt Temp (60.0 - 80.0 mmHg) 66.9 79.1 ABG HCO3 (20.0 - 26.0 mmol/L) 17.1 16.1 ABG O2 Sat Calc/Donny (95.1 - 100.0 %) 88.1 94.4 ABG Base Excess (-6.0 - -6.0 mmol/L) -10.7 -11.1 ABG Reduced Hgb (%) 11.7 5.5 ABG Carboxyhemoglobin (0.5 - 1.5 %) 1.8 2.0 ABG Methemoglobin (0.4 - 1.5 %) 0.0 0.4 John Test YES YES Other Total Hgb (14.0 - 18.0 g/dL) 7.7 8.0 A-a O2 Gradient (7.0 - 14.0 mmHg) 306.5 302.9 Hgb O2 Saturation (95.0 - 100.0 %) 86.5 92.1 Respiration Rate (/MIN) [address] BIPAP 18/8 FiO2 (20 - 101 %) 60 60 Pressure Support (cmH2O) 12 Chemistry Plasma Sodium (136 - 145 mmol/L) 145 138 Plasma Potassium (3.5 - 5.1 mmol/L) 6.0 5.3 Plasma Chloride (98 - 107 mmol/L) 110 107 CO2 (Enzymatic) (21 - 32 mmol/L) 19 13 BUN (7 - 18 mg/dL) 111 103 Creatinine (0.6 - 1.3 mg/dL) 3.3 3.3 Est GFR ( Amer) (mL/min) 23.47 23.47 Est GFR (Non-Af Amer) (mL/min) 19.37 19.37 Glucose (70 - 110 mg/dL) 113 111 Plasma Calcium (8.5 - 10.1 mg/dL) 8.3 8.2 Total Bilirubin (0.0 - 1.0 mg/dL) 1.1 Direct Bilirubin (0 - 0.3 mg/dL) 0.4 AST (15 - 37 U/L) 34 ALT (12 - 78 U/L) 25 Alkaline Phosphatase (46 - 116 U/L) 50 Total Protein (6.4 - 8.2 g/dL) 5.5 Albumin (3.3 - 5.0 g/dL) 2.3 Hematology WBC (4.5 - 11.5 K/uL) 33.2 23.7 RBC (4.50 - 5.90 M/uL) 2.70 2.62 Hgb (13.5 - 17.5 gm/dL) 8.1 7.9 Hct (41.0 - 53.0 %) 24.2 23.6 MCV (80 - 100 fL) 90 90 MCH (26 - 34 pg) 30 30 RDW (11.6 - 14.8 %) 14.9 14.7 Neut % (Auto) (50 - 75 %) 85 91.2 Lymph % (Auto) (25 - 40 %) 7 4.0 Meagher % (Auto) (3 - 14 %) 0 4.7 Eos % (Auto) (0 - 4 %) 0 0 Baso % (Auto) (0 - 2 %) 0 0.1 Band Neutrophils % (0 - 8 %) 8 Metamyelocytes % (0 - 1 %) 0 Myelocytes (0 - 1 %) 0 Other Cell Type 0 Plt Count, EDTA (150 - 400 K/uL) 249 212 Polychromasia 2+ Hypochromic-Microcytic 2+ Anisocytosis (manual) 2+ PUBS MCHC (31 - 37 g/dL) 33 34 Toxicology Digoxin (0.9 - 2.0 ng/mL) 4.4 Assessment and Plan Problem List 1. Sepsis associated hypotension Plan will change ABX to Vanco and Zosyn, since increase WBC and fever, infl in CXR 2. Severe anemia Plan stablized, will monitor and transfuse if needed stool ordered for occult blood 3. Pneumonia Plan see sepsis 4. Renal insufficiency Plan improved and stablized 5. Acidosis, metabolic Plan stablized but not improving, continue IV bicarb 6. Afib Plan rate controlled
--- NOTE | 2016-07-28 08:41 | DIAGNOSTIC IMAGING REPORT ---
PROCEDURE: XR CHEST 1 VIEW INDICATION: desaturation TECHNIQUE: Single view chest. 07:46 hours COMPARISON: 07/27/2016 at 03:01 hours FINDINGS: The left cardiac border is stable. The right side is obscured by right base opacity. Mediastinum is stable. Right-sided IJ central line remains in position. There is now significant asymmetric elevation of the right hemidiaphragm and/or right lower lobe opacity, likely secondary to a post obstructive process. Right upper lobe lung mass is again seen. Small left basilar stranding, atelectasis or small infiltrate. No left effusion or pneumothorax. Stable osseous structures. IMPRESSION: 1. Interval development of dense right lower lobe opacity, worsening consolidation and/or lobar atelectasis. 2. Right upper lobe infiltrate. 3. Stable mediastinum. 4. Findings called to the floor.
--- NOTE | 2016-07-29 11:58 | EXPIRATION SUMMARY ---
ADMITTED: 07/25/2016 : 07/28/2016 ADMITTING DIAGNOSIS: 1. Right lower lobe pneumonia with effusion, profound anemia and profound renal insufficiency with sepsis picture. FINAL DIAGNOSES: 1. Progressive sepsis with organism not identified on blood cultures or sputum culture. 2. Other significant problems include a right upper lobe lung mass associated with diffuse hilar and anterior middle mediastinal adenopathy as well as a right lower lumbar paraspinous muscle mass suspicious for tumor. 3. Other problems include persistent acidosis. 4. Renal failure. 5. Development of atrial fibrillation. 6. Progressive respiratory deterioration. 7. Chronic problems of underlying chronic obstructive pulmonary disease, moderate. Longstanding smoking history with continue smoking at time of admission. 8. Hyperlipidemia. 9. Cervical degenerative disk disease and lumbar degenerative disk disease. PROCEDURE: None. HOSPITAL COURSE: Please see the dictated history and physical exam for details concerning admission. The patient presented to the emergency department on 07/24/2016 after a 2-3 week course of rather strange neurologic and musculoskeletal symptoms with development of severe lower back pain and then development of cough and shortness breath and low-grade fever. When he presented, he showed evidence of a right pleural effusion and lower lobe infiltrate. He had also developed profound anemia with hemoglobin of 6.8, hematocrit of 18, and profound renal insufficiency with a BUN of 119 and creatinine of 5.6. These seemed out of the ordinary for the symptoms he had been having in the week or two period of time prior to his admission. He had not had any obvious gastrointestinal bleeding. He did not have any evidence of blood in his stool at the time of admission in the emergency department. He was not eating so well or drinking much in the way of fluids, but had not had major emesis issues or diarrhea issues that would have contributed to major dehydration. He was not on any diuretics. Early on in his hospitalization course , he did have iron studies, which were normal and did not suggest a chronic iron- deficiency anemia from blood loss. Before the patient was transferred to the intensive care unit, he was transfused with 4 units of packed red blood cells in the emergency department due to hypotension. He had a significantly elevated white blood cell count in the 25, 000 range and was felt to be septic, though his procalcitonin level was normal. He had blood cultures done and a Noble catheter placed and was started on levofloxacin and vancomycin. Initially, he was very stable with his lung function with just supplemental nasal prong oxygen. He did have a CT scan done and this showed a tumor in the right upper lobe area that was quite suspicious for a cancerous type tumor, particularly when associated with marked mediastinal lymphadenopathy. The patient had an abdominal CT scan which showed no major abdominal abnormalities other than abnormal appearance of the right lower lumbar paraspinous muscles with the suggestive of some sort of an infiltrative process, though there was no clear abscess or major hematoma. The patient was admitted and continued on his antibiotic treatment. Plans were in place to have a needle biopsy done with Dr. Monson in radiology of the right upper lobe lung mass and to consider a biopsy and MRI scan of the right paraspinous muscle abnormality. Over the course of the next 2 days, the patient had progressive decline in function. His respiratory condition seemed to worsen despite antibiotic therapy. His antibiotics were changed to Zosyn and vancomycin. The hospitalist service was asked to consult. He had persistent profound metabolic acidosis and attempt was made to try to ameliorate this with a bicarbonate infusion. The patient developed atrial fibrillation and this was controlled with a diltiazem infusion. His BUN and creatinine improved some to a creatinine of about 3.1. He continued to have fair urine output, but continued to be showing progressive respiratory decline. He was placed on BiPAP to maintain oxygenation and, with all of the treatments, his neurologic function declined to the point where he became progressively more obtunded and unresponsive. In the morning of the , he was minimally responsive to pain and showed progressive worsening of heart function and obstruction of the bronchus lower lobe area of the right lung and probably the middle lobe area as well. Due to the fact that he had an underlying lung tumor that seemed to be rapidly progressive in its manifestations, there seemed to be little point in recommending intubation and ventilator management or transfer for renal dialysis as he simply was unstable to undergo any vigorous treatments for tumor or to undergo other vigorous invasive medical treatments. His daughter agreed with this. He was made a CHEMICAL CODE only status. As the day progressed, he had progressive decline and then developed cardiac arrest. Dr. Vaughn was present and tried epinephrine boluses, but these did not help at all, and the patient in the late afternoon around 4 p.m. 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 After the patient's body had been transferred to the home facility, the patient's family called back and was requesting a limited autopsy to check the right lung mass and arrangements are in process to accomplish this.
== END 2016-07-28 13:30 | disposition expired | DRG 871 ==
LOC: ED SRH 16:49 → TRANS SRH 19:09 → CC SRH 19:09
PROVIDERS: ADMIT Emergency Medicine
PROC: 30233N1 Transfusion of Nonautologous Red Blood Cells into Peripheral Vein, Percutaneous Approach (ICD-10-PCS; 2016-07-24)
PROC: 30233N1 Transfusion of Nonautologous Red Blood Cells into Peripheral Vein, Percutaneous Approach (ICD-10-PCS; 2016-07-24)
PROC: 30233N1 Transfusion of Nonautologous Red Blood Cells into Peripheral Vein, Percutaneous Approach (ICD-10-PCS; 2016-07-24)
PROC: 30233N1 Transfusion of Nonautologous Red Blood Cells into Peripheral Vein, Percutaneous Approach (ICD-10-PCS; 2016-07-24)
PROC: 05HM33Z Insertion of Infusion Device into Right Internal Jugular Vein, Percutaneous Approach (ICD-10-PCS; 2016-07-26)
PROC: 5A09457 Assistance with Respiratory Ventilation, 24-96 Consecutive Hours, Continuous Positive Airway Pressure (ICD-10-PCS; principal; 2016-07-27)
DX: A41.9 Sepsis, unspecified organism (principal); N17.9 Acute kidney failure, unspecified; R65.20 Severe sepsis without septic shock; C34.11 Malignant neoplasm of upper lobe, right bronchus or lung; J18.9 Pneumonia, unspecified organism; E87.2 Acidosis; J98.09 Other diseases of bronchus, not elsewhere classified; E86.0 Dehydration; N18.9 Chronic kidney disease, unspecified; R59.0 Localized enlarged lymph nodes; R22.2 Localized swelling, mass and lump, trunk; D64.9 Anemia, unspecified; I48.91 Unspecified atrial fibrillation; J44.9 Chronic obstructive pulmonary disease, unspecified; E78.5 Hyperlipidemia, unspecified; F17.210 Nicotine dependence, cigarettes, uncomplicated